=== PATIENT | female | born 1940 | race Caucasian/White ===

== ENCOUNTER → 2016-06-26 | Outpatient (CLI) | payer MEDICARE, OTHER ==
[~2016-06-26] MED LIST: DOCU-94 PO; EZET10TA2 PO; HYDR12.527 PO; LEVO112T32 PO; LIS20T GT; LISI-33 PO; METO50TA7 PO; SERT-135 PO; SIMV-8 PO
[2016-06-26 12:13] LABS: Urine Bilirubin Negative (Negative); Urine Blood Negative /uL (Negative); Urine Color Yellow (Yellow); Urine Glucose Normal (Normal); Urine Ketone Negative (Negative); Urine Nitrite Negative (Negative); Urine Urobilinogen Normal (Negative); Urine pH 5.5 (5.0-8.0)
== END | disposition home or self-care (01) ==
LOC: LAB 08:35
PROVIDERS: ATTEND Internal Medicine Cardiovascular Disease
DX: E03.9 Hypothyroidism, unspecified (principal); N39.0 Urinary tract infection, site not specified
CPT/HCPCS: 36415; 81003; 84436; 84443; 87086

== ENCOUNTER → 2016-09-11 | Outpatient (CLI) | payer MEDICARE, OTHER ==
[~2016-09-11] VITALS: Ht 154.9 cm; Wt 78.5 kg
[~2016-09-11] MED LIST changes: +ADENOSINE 66 MG in GIVE UN-DILUTED 0 ML IV ONE; +ADENOSINE 90 MG/30 ML INJ IV ONE
== END | disposition home or self-care (01) ==
LOC: Rad HDHVI 10:01
PROVIDERS: ATTEND Internal Medicine Cardiovascular Disease
DX: I10 Essential (primary) hypertension (principal); I49.5 Sick sinus syndrome; E78.5 Hyperlipidemia, unspecified; E11.65 Type 2 diabetes mellitus with hyperglycemia; E78.00 Pure hypercholesterolemia, unspecified; Z95.0 Presence of cardiac pacemaker; Z82.49 Family history of ischemic heart disease and other diseases of the circulatory system
CPT/HCPCS: 78452; 93005; 96374; 96375; A9500; J0153

== ENCOUNTER → 2016-09-17 | Outpatient (CLI) | payer MEDICARE, OTHER ==
[~2016-09-17] MED LIST changes: -ADENOSINE 66 MG in GIVE UN-DILUTED 0 ML IV ONE; -ADENOSINE 90 MG/30 ML INJ IV ONE
== END | disposition home or self-care (01) ==
LOC: Rad HDHVI 13:14
PROVIDERS: ATTEND Internal Medicine Cardiovascular Disease
DX: I10 Essential (primary) hypertension (principal); E11.9 Type 2 diabetes mellitus without complications
CPT/HCPCS: 93880

== ENCOUNTER → 2017-02-25 | Outpatient (CLI) | payer MEDICARE, OTHER ==
[2017-02-25 12:58] LABS: Basophils # (auto) 0 uL; Basophils % (auto) 0.3 % (0.0-2.0); Eosinophils # (auto) 0.2 uL; Hematocrit 38.4 % (36.0-46.0); Hemoglobin 13.1 g/dL (12.2-16.2); Lymphocytes # (auto) 0.8 uL; Lymphocytes % (auto) 7.9 % (10.0-50.0); Mean Corpuscular Hemoglobin 33.3 pg (28.0-32.0); Mean Corpuscular Volume 98.2 fL (80.0-100.0); Mean Platelet Volume 8.3 fL (6.9-10.8); Monocytes # (auto) 0.8 uL; Monocytes % (auto) 7.9 % (0.0-12.0); Neutrophils % (auto) 81.9 % (37.0-80.0); Nucleated Red Blood Cells % 0.1 %; Platelet Count (auto) 215 10^3/uL (140-450); Red Cell Distribution Width 13.8 % (11.8-14.3); White Blood Cell 9.8 10^3/uL (4.4-10.8)
[2017-02-25 13:01] LABS: Urine Bilirubin Negative (Negative); Urine Blood Negative /uL (Negative); Urine Color Yellow (Yellow); Urine Glucose Normal (Normal); Urine Ketone Negative (Negative); Urine Nitrite Negative (Negative); Urine pH 5.5 (5.0-8.0)
[2017-02-25 13:26] LABS: BUN/Creatinine Ratio 27.1; Bilirubin, Direct 0.2 mg/dL (0-0.2); Bilirubin, Total 0.8 mg/dL (0.2-1.0); Calcium 10.7 mg/dL (8.5-10.1); Potassium 3.3 mmol/L (3.5-5.1)
== END | disposition home or self-care (01) ==
LOC: LAB 08:31
PROVIDERS: ATTEND Internal Medicine Cardiovascular Disease
DX: I11.0 Hypertensive heart disease with heart failure (principal); I50.9 Heart failure, unspecified; E11.9 Type 2 diabetes mellitus without complications; E78.00 Pure hypercholesterolemia, unspecified; K74.1 Hepatic sclerosis; E03.9 Hypothyroidism, unspecified; D64.9 Anemia, unspecified; E55.9 Vitamin D deficiency, unspecified; N39.0 Urinary tract infection, site not specified
CPT/HCPCS: 36415; 80048; 80061; 80076; 81003; 82306; 83036; 84443; 85025

== ENCOUNTER → 2017-03-07 | Outpatient (CLI) | payer MEDICARE, OTHER ==
[2017-03-07 15:20] LABS: Basophils # (auto) 0 uL; Basophils % (auto) 0.2 % (0.0-2.0); Eosinophils # (auto) 0.1 uL; Eosinophils % (auto) 0.5 % (0.0-7.0); Hematocrit 35.2 % (36.0-46.0); Hemoglobin 11.8 g/dL (12.2-16.2); Lymphocytes # (auto) 1.1 uL; Lymphocytes % (auto) 10.4 % (10.0-50.0); Mean Corpuscular Hemoglobin 32.9 pg (28.0-32.0); Mean Corpuscular Hgb Conc. 33.4 g/dL (32.0-36.0); Mean Corpuscular Volume 98.4 fL (80.0-100.0); Mean Platelet Volume 7.8 fL (6.9-10.8); Monocytes # (auto) 0.6 uL; Monocytes % (auto) 5.9 % (0.0-12.0); Neutrophils # (auto) 8.8 uL; Platelet Count (auto) 229 10^3/uL (140-450); Red Cell Distribution Width 13.9 % (11.8-14.3); White Blood Cell 10.6 10^3/uL (4.4-10.8)
== END | disposition home or self-care (01) ==
LOC: LAB 08:08
PROVIDERS: ATTEND Internal Medicine Cardiovascular Disease
DX: M10.9 Gout, unspecified (principal); D64.9 Anemia, unspecified; R70.0 Elevated erythrocyte sedimentation rate
CPT/HCPCS: 36415; 84550; 85025; 85652

== ENCOUNTER → 2017-05-19 | Outpatient (CLI) | payer MEDICARE, OTHER ==
[~2017-05-19] MED LIST changes: -EZET10TA2 PO; +EZET10TA6 PO
[2017-05-19 17:07] LABS: Urine Blood Negative /uL (Negative); Urine Specific Gravity 1.019 (1.001-1.035)
== END | disposition home or self-care (01) ==
LOC: CHF HDHVI 15:30
PROVIDERS: ATTEND Internal Medicine Cardiovascular Disease
DX: N39.0 Urinary tract infection, site not specified (principal)
CPT/HCPCS: 81003; 87086; 87088; 87186

== ENCOUNTER → 2017-06-02 | Outpatient (CLI) | payer MEDICARE, OTHER ==
[2017-06-02 12:49] LABS: Urine Blood Negative /uL (Negative); Urine Specific Gravity 1.024 (1.001-1.035)
== END | disposition home or self-care (01) ==
LOC: LAB 09:39
PROVIDERS: ATTEND Internal Medicine Cardiovascular Disease
DX: N39.0 Urinary tract infection, site not specified (principal)
CPT/HCPCS: 81003; 87086

== ENCOUNTER → 2017-09-05 | Outpatient (CLI) | payer MEDICARE, OTHER ==
[2017-09-05 12:04] LABS: Basophils # (auto) 0 uL; Basophils % (auto) 0.3 % (0.0-2.0); Eosinophils # (auto) 0.2 uL; Eosinophils % (auto) 3.7 % (0.0-7.0); Hematocrit 37.8 % (36.0-46.0); Hemoglobin 12.7 g/dL (12.2-16.2); Lymphocytes % (auto) 15.7 % (10.0-50.0); Mean Corpuscular Hemoglobin 32.6 pg (28.0-32.0); Mean Corpuscular Hgb Conc. 33.7 g/dL (32.0-36.0); Mean Corpuscular Volume 96.8 fL (80.0-100.0); Monocytes # (auto) 0.6 uL; Neutrophils # (auto) 4.6 uL; Neutrophils % (auto) 71.3 % (37.0-80.0); Nucleated Red Blood Cells % 0.1 %; Platelet Count (auto) 169 10^3/uL (140-450); Urine Blood Negative /uL (Negative); Urine Specific Gravity 1.016 (1.001-1.035); White Blood Cell 6.5 10^3/uL (4.4-10.8)
[2017-09-05 12:22] LABS: Potassium 3.5 mmol/L (3.5-5.1)
[2017-09-05 12:29] LABS: Bilirubin, Total 0.7 mg/dL (0.2-1.0); Calcium 9.8 mg/dL (8.5-10.1); Total Protein 7.4 g/dL (6.4-8.2)
[2017-09-05 12:43] LABS: Free T4 (Free Thyroxine) 0.89 ng/dL (0.89-1.76)
== END | disposition home or self-care (01) ==
LOC: LAB 08:37
PROVIDERS: ATTEND Internal Medicine Cardiovascular Disease
DX: Z00.01 Encounter for general adult medical examination with abnormal findings (principal); E03.9 Hypothyroidism, unspecified; E11.9 Type 2 diabetes mellitus without complications; E55.9 Vitamin D deficiency, unspecified; D51.9 Vitamin B12 deficiency anemia, unspecified; N39.0 Urinary tract infection, site not specified
CPT/HCPCS: 36415; 80053; 80061; 81003; 82306; 82607; 83036; 84439; 84443; 85025

== ENCOUNTER → 2018-03-05 | Outpatient (CLI) | payer MEDICARE, OTHER ==
[~2018-03-05] VITALS: Ht 154.9 cm; Wt 77.1 kg
[~2018-03-05] MED LIST changes: +ADENOSINE 90 MG/30 ML INJ IV ONE; +MET5XLT PO; -METO50TA7 PO
[2018-03-05 16:14] LABS: Urine Blood Negative /uL (Negative); Urine Specific Gravity 1.022 (1.001-1.035)
[2018-03-05 16:20] LABS: Albumin 4.1 g/dL (3.4-5.0); Calcium 10.5 mg/dL (8.5-10.1); Potassium 3.1 mmol/L (3.5-5.1)
[2018-03-05 16:25] LABS: BUN/Creatinine Ratio 30.9; Bilirubin, Total 0.5 mg/dL (0.2-1.0); Total Protein 7.7 g/dL (6.4-8.2)
[2018-03-05 16:29] LABS: Free T4 (Free Thyroxine) 1.04 ng/dL (0.89-1.76)
[2018-03-05 16:41] LABS: Basophils # (auto) 0 uL; Basophils % (auto) 0.3 % (0.0-2.0); Eosinophils # (auto) 0.4 uL; Eosinophils % (auto) 4.3 % (0.0-7.0); Hematocrit 38.3 % (36.0-46.0); Hemoglobin 12.9 g/dL (12.2-16.2); Lymphocytes # (auto) 1.5 uL; Lymphocytes % (auto) 14.8 % (10.0-50.0); Mean Corpuscular Hemoglobin 32.5 pg (28.0-32.0); Mean Corpuscular Hgb Conc. 33.6 g/dL (32.0-36.0); Mean Corpuscular Volume 96.7 fL (80.0-100.0); Monocytes # (auto) 1.1 uL; Monocytes % (auto) 10.5 % (0.0-12.0); Neutrophils # (auto) 7.2 uL; Neutrophils % (auto) 70.1 % (37.0-80.0); Nucleated Red Blood Cells % 0.1 %; Platelet Count (auto) 223 10^3/uL (140-450); Red Blood Cells 3.96 10^6/uL (4.0-5.20); Red Cell Distribution Width 13.9 % (11.8-14.3); White Blood Cell 10.2 10^3/uL (4.4-10.8)
== END | disposition home or self-care (01) ==
LOC: Rad HDHVI 13:05
PROVIDERS: ATTEND Internal Medicine Cardiovascular Disease
DX: E11.9 Type 2 diabetes mellitus without complications (principal); E78.5 Hyperlipidemia, unspecified; D64.9 Anemia, unspecified; E03.9 Hypothyroidism, unspecified; E55.9 Vitamin D deficiency, unspecified; D51.9 Vitamin B12 deficiency anemia, unspecified; N39.0 Urinary tract infection, site not specified; I10 Essential (primary) hypertension; I49.5 Sick sinus syndrome; J01.90 Acute sinusitis, unspecified
CPT/HCPCS: 36415; 80053; 80061; 81003; 82306; 82607; 83036; 84439; 84443; 85025; 87086

== ENCOUNTER → 2018-03-06 | Outpatient (CLI) | payer MEDICARE, OTHER ==
[~2018-03-06] VITALS: Ht 154.9 cm; Wt 77.1 kg
[~2018-03-06] MED LIST changes: +ADENOSINE 65 MG in GIVE UN-DILUTED 0 ML IV ONE; -ADENOSINE 90 MG/30 ML INJ IV ONE
[2018-03-06 08:40] VITALS: BP 134/57
[2018-03-06 09:15] VITALS: BP 148/63
== END | disposition home or self-care (01) ==
LOC: Rad HDHVI 08:20
PROVIDERS: ATTEND Internal Medicine Cardiovascular Disease
DX: Z01.818 Encounter for other preprocedural examination (principal); I51.7 Cardiomegaly; I70.0 Atherosclerosis of aorta
CPT/HCPCS: 71046; 93005; G0463; J0153

== ENCOUNTER → 2018-06-04 | Outpatient (CLI) | payer MEDICARE, OTHER ==
[~2018-06-04] MED LIST changes: -ADENOSINE 65 MG in GIVE UN-DILUTED 0 ML IV ONE
== END | disposition home or self-care (01) ==
LOC: LAB 09:04
PROVIDERS: ATTEND Internal Medicine Cardiovascular Disease
DX: E03.9 Hypothyroidism, unspecified (principal)
CPT/HCPCS: 36415; 84439; 84443

== ENCOUNTER → 2018-09-14 | Outpatient (CLI) | payer MEDICARE, OTHER ==
[~2018-09-14] MED LIST changes: +EZET10TA22 PO; -EZET10TA6 PO; -HYDR12.527 PO; +HYDR12.55 PO; -MET5XLT PO; +METO-6 PO; -SERT-135 PO; +SERT100T PO
[2018-09-14 16:18] LABS: BUN/Creatinine Ratio 17.9; Calcium 10.2 mg/dL (8.5-10.1); Potassium 3.3 mmol/L (3.5-5.1)
== END | disposition home or self-care (01) ==
LOC: LAB 12:01
PROVIDERS: ATTEND Internal Medicine Cardiovascular Disease
DX: I10 Essential (primary) hypertension (principal)
CPT/HCPCS: 36415; 80048

== ENCOUNTER → 2018-11-24 | Outpatient (CLI) | payer MEDICARE, OTHER ==
[2018-11-24 12:26] LABS: Potassium 3.9 mmol/L (3.5-5.1)
[2018-11-24 12:32] LABS: BUN/Creatinine Ratio 24.2; Calcium 9.8 mg/dL (8.5-10.1); Magnesium 2.4 mg/dL (1.6-2.6)
== END | disposition home or self-care (01) ==
LOC: LAB 10:25
PROVIDERS: ATTEND Internal Medicine Cardiovascular Disease
DX: E83.40 Disorders of magnesium metabolism, unspecified (principal); R79.89 Other specified abnormal findings of blood chemistry
CPT/HCPCS: 36415; 80048; 83735

== ENCOUNTER → 2019-01-08 | Outpatient (CLI) | payer MEDICARE, OTHER ==
[2019-01-08 15:58] LABS: Urine Blood 2+ /uL (Negative); Urine Specific Gravity 1.023 (1.001-1.035)
== END | disposition home or self-care (01) ==
LOC: LAB 11:48
PROVIDERS: ATTEND Internal Medicine Cardiovascular Disease
DX: N39.0 Urinary tract infection, site not specified (principal)
CPT/HCPCS: 81003; 87086

== ENCOUNTER → 2019-01-15 | Outpatient (CLI) | payer MEDICARE, OTHER ==
[2019-01-15 12:05] LABS: Urine Blood Negative /uL (Negative); Urine Specific Gravity 1.022 (1.001-1.035)
[2019-01-15 12:07] LABS: BUN/Creatinine Ratio 18.7; Calcium 9.8 mg/dL (8.5-10.1); Potassium 4.1 mmol/L (3.5-5.1)
== END | disposition home or self-care (01) ==
LOC: LAB 09:30
PROVIDERS: ATTEND Internal Medicine
DX: N39.0 Urinary tract infection, site not specified (principal); R53.83 Other fatigue; I10 Essential (primary) hypertension
CPT/HCPCS: 36415; 80048; 81003; 87086

== ENCOUNTER → 2019-02-15 | Outpatient (CLI) | payer MEDICARE, OTHER ==
[2019-02-15 12:16] LABS: BUN/Creatinine Ratio 20.2; Calcium 9.4 mg/dL (8.5-10.1); Potassium 3.8 mmol/L (3.5-5.1)
== END | disposition home or self-care (01) ==
LOC: LAB 09:31
PROVIDERS: ATTEND Internal Medicine Cardiovascular Disease
DX: I11.0 Hypertensive heart disease with heart failure (principal); I50.9 Heart failure, unspecified; E78.5 Hyperlipidemia, unspecified; E03.9 Hypothyroidism, unspecified; F32.9 Major depressive disorder, single episode, unspecified; Z88.5 Allergy status to narcotic agent; Z88.1 Allergy status to other antibiotic agents; Z91.02 Food additives allergy status
CPT/HCPCS: 36415; 80048

== ENCOUNTER → 2019-03-08 | Outpatient (CLI) | payer MEDICARE, OTHER ==
[2019-03-08 11:58] LABS: Potassium 4.2 mmol/L (3.5-5.1)
[2019-03-08 12:07] LABS: BUN/Creatinine Ratio 33.1; Calcium 9.9 mg/dL (8.5-10.1)
== END | disposition home or self-care (01) ==
LOC: LAB 09:17
PROVIDERS: ATTEND Internal Medicine Cardiovascular Disease
DX: I10 Essential (primary) hypertension (principal); Z79.899 Other long term (current) drug therapy
CPT/HCPCS: 36415; 80048

== ENCOUNTER → 2019-04-12 | Outpatient (CLI) | payer MEDICARE, OTHER | END | disposition home or self-care (01) | LOC: LAB 12:58 | PROVIDERS: ATTEND Internal Medicine Cardiovascular Disease | DX: E87.6 Hypokalemia (principal) | CPT/HCPCS: 36415; 84132 ==

== ENCOUNTER → 2019-04-30 | Outpatient (CLI) | payer MEDICARE, OTHER | END | disposition home or self-care (01) | LOC: Rad HDHVI 12:47 | PROVIDERS: ATTEND Internal Medicine Cardiovascular Disease | DX: I34.0 Nonrheumatic mitral (valve) insufficiency (principal); I10 Essential (primary) hypertension; J44.9 Chronic obstructive pulmonary disease, unspecified; R07.9 Chest pain, unspecified | CPT/HCPCS: 93306 ==

== ENCOUNTER → 2019-05-12 | Outpatient (CLI) | payer MEDICARE, OTHER ==
[~2019-05-12] VITALS: Ht 154.9 cm; Wt 74.4 kg
[~2019-05-12] MED LIST changes: +ADENOSINE 62 MG in GIVE UN-DILUTED 0 ML IV ONE; +ADENOSINE 90 MG/30 ML INJ IV ONE
[2019-05-12 12:28] LABS: Basophils # (auto) 0 uL; Basophils % (auto) 0.4 % (0.0-2.0); Eosinophils # (auto) 0.3 uL; Eosinophils % (auto) 4.3 % (0.0-7.0); Hematocrit 35.5 % (36.0-46.0); Lymphocytes # (auto) 0.7 uL; Mean Corpuscular Hemoglobin 32.7 pg (28.0-32.0); Mean Corpuscular Hgb Conc. 33.8 g/dL (32.0-36.0); Mean Corpuscular Volume 96.6 fL (80.0-100.0); Monocytes # (auto) 0.8 uL; Monocytes % (auto) 9.6 % (0.0-12.0); Neutrophils # (auto) 6.1 uL; Neutrophils % (auto) 76.7 % (37.0-80.0); Nucleated Red Blood Cells % 0.1 %; Platelet Count (auto) 171 10^3/uL (140-450); Red Blood Cells 3.68 10^6/uL (4.0-5.20); Red Cell Distribution Width 15.3 % (11.8-14.3)
[2019-05-12 12:37] LABS: Urine Blood Negative /uL (Negative); Urine Specific Gravity 1.016 (1.001-1.035)
[2019-05-12 12:53] LABS: Potassium 4.5 mmol/L (3.5-5.1)
[2019-05-12 13:00] LABS: Albumin 3.9 g/dL (3.4-5.0); BUN/Creatinine Ratio 26.8; Bilirubin, Total 0.5 mg/dL (0.2-1.0); Calcium 10.6 mg/dL (8.5-10.1); Total Protein 7.3 g/dL (6.4-8.2)
[2019-05-12 13:10] LABS: Free T4 (Free Thyroxine) 1.14 ng/dL (0.89-1.76)
== END | disposition home or self-care (01) ==
LOC: Rad HDHVI 07:55
PROVIDERS: ATTEND Internal Medicine Cardiovascular Disease
DX: E11.9 Type 2 diabetes mellitus without complications (principal); I10 Essential (primary) hypertension; E03.9 Hypothyroidism, unspecified; K90.9 Intestinal malabsorption, unspecified; N39.0 Urinary tract infection, site not specified; D51.9 Vitamin B12 deficiency anemia, unspecified; E78.00 Pure hypercholesterolemia, unspecified; Z82.49 Family history of ischemic heart disease and other diseases of the circulatory system; Z95.0 Presence of cardiac pacemaker; Z79.899 Other long term (current) drug therapy
CPT/HCPCS: 36415; 78452; 80053; 80061; 81003; 82306; 82607; 83036; 84439; 84443; 85025; 87086; 93005; 96374; 96375; A9500; J0153

== ENCOUNTER → 2020-04-19 | Outpatient (CLI) | payer MEDICARE, OTHER ==
[~2020-04-19] MED LIST changes: -ADENOSINE 62 MG in GIVE UN-DILUTED 0 ML IV ONE; -ADENOSINE 90 MG/30 ML INJ IV ONE
== END | disposition home or self-care (01) ==
LOC: Rad HDHVI 13:00
PROVIDERS: ATTEND Internal Medicine Cardiovascular Disease
DX: J32.9 Chronic sinusitis, unspecified (principal)
CPT/HCPCS: 70220

== ENCOUNTER → 2020-04-20 | Outpatient (CLI) | payer MEDICARE, OTHER | END | disposition home or self-care (01) | LOC: Rad HDHVI 09:47 | PROVIDERS: ATTEND Internal Medicine Cardiovascular Disease | DX: I08.3 Combined rheumatic disorders of mitral, aortic and tricuspid valves (principal); R00.2 Palpitations; R07.89 Other chest pain | CPT/HCPCS: 93306 ==

== ENCOUNTER → 2020-04-21 | Outpatient (CLI) | payer MEDICARE, OTHER ==
[2020-04-21 11:34] LABS: Basophils # (auto) 0 10 ^3/uL (0-0.2); Basophils % (auto) 0.2 % (0.0-2.0); Eosinophils # (auto) 0.1 10 ^3/uL (0-0.8); Eosinophils % (auto) 1.5 % (0.0-7.0); Hematocrit 34.9 % (36.0-46.0); Hemoglobin 11.7 g/dL (12.2-16.2); Lymphocytes # (auto) 1.2 10 ^3/uL (0.4-5.4); Lymphocytes % (auto) 14.5 % (10.0-50.0); Mean Corpuscular Hemoglobin 32.2 pg (28.0-32.0); Mean Corpuscular Hgb Conc. 33.4 g/dL (32.0-36.0); Mean Corpuscular Volume 96.1 fL (80.0-100.0); Monocytes # (auto) 0.7 10 ^3/uL (0-1.3); Monocytes % (auto) 8.8 % (0.0-12.0); Neutrophils # (auto) 6.2 10 ^3/uL (1.6-8.6); Nucleated Red Blood Cells % 0.1 %; Platelet Count (auto) 178 10^3/uL (140-450); Red Blood Cells 3.63 10^6/uL (4.0-5.20); Red Cell Distribution Width 14.8 % (11.8-14.3); White Blood Cell 8.3 10^3/uL (4.4-10.8)
[2020-04-21 11:38] LABS: Urine Blood Negative /uL (Negative); Urine Specific Gravity 1.019 (1.001-1.035)
[2020-04-21 11:44] LABS: Potassium 3.8 mmol/L (3.5-5.1)
[2020-04-21 11:54] LABS: Albumin 3.8 g/dL (3.4-5.0); BUN/Creatinine Ratio 22.7; Bilirubin, Total 0.4 mg/dL (0.2-1.0); Calcium 10.4 mg/dL (8.5-10.1); Free T4 (Free Thyroxine) 1.05 ng/dL (0.89-1.76); Total Protein 7.5 g/dL (6.4-8.2)
== END | disposition home or self-care (01) ==
LOC: LAB 08:24
PROVIDERS: ATTEND Internal Medicine Cardiovascular Disease
DX: D51.3 Other dietary vitamin B12 deficiency anemia (principal); I10 Essential (primary) hypertension; E11.9 Type 2 diabetes mellitus without complications; E55.9 Vitamin D deficiency, unspecified; R00.2 Palpitations; R53.1 Weakness; R30.0 Dysuria
CPT/HCPCS: 36415; 80053; 80061; 81003; 82306; 82607; 83036; 84439; 84443; 85025; 87086

== ENCOUNTER → 2020-05-09 | Outpatient (CLI) | payer MEDICARE, OTHER ==
[~2020-05-09] VITALS: Ht 154.9 cm; Wt 73.5 kg
[~2020-05-09] MED LIST changes: +ADENOSINE 62 MG in GIVE UN-DILUTED 0 ML IV ONE; +ADENOSINE 90 MG/30 ML INJ IV ONE
== END | disposition home or self-care (01) ==
LOC: Rad HDHVI 08:10
PROVIDERS: ATTEND Internal Medicine Cardiovascular Disease
DX: I25.10 Atherosclerotic heart disease of native coronary artery without angina pectoris (principal); I10 Essential (primary) hypertension; E78.00 Pure hypercholesterolemia, unspecified; E11.9 Type 2 diabetes mellitus without complications; Z95.0 Presence of cardiac pacemaker; Z82.49 Family history of ischemic heart disease and other diseases of the circulatory system
CPT/HCPCS: 78452; 93005; 96374; 96375; A9500; J0153

== ENCOUNTER → 2021-04-17 | Outpatient (CLI) | payer MEDICARE, OTHER ==
[~2021-04-17] MED LIST changes: -ADENOSINE 62 MG in GIVE UN-DILUTED 0 ML IV ONE; -ADENOSINE 90 MG/30 ML INJ IV ONE
[2021-04-17 11:31] LABS: Urine Blood Negative /uL (Negative); Urine Specific Gravity 1.017 (1.001-1.035)
[2021-04-17 11:34] LABS: Basophils # (auto) 0 10 ^3/uL (0-0.2); Basophils % (auto) 0.3 % (0.0-2.0); Eosinophils # (auto) 0.3 10 ^3/uL (0-0.8); Eosinophils % (auto) 4.2 % (0.0-7.0); Hematocrit 35.7 % (36.0-46.0); Hemoglobin 11.9 g/dL (12.2-16.2); Lymphocytes # (auto) 0.7 10 ^3/uL (0.4-5.4); Lymphocytes % (auto) 10.5 % (10.0-50.0); Mean Corpuscular Hgb Conc. 33.4 g/dL (32.0-36.0); Mean Corpuscular Volume 95.9 fL (80.0-100.0); Monocytes # (auto) 0.5 10 ^3/uL (0-1.3); Monocytes % (auto) 8.7 % (0.0-12.0); Neutrophils # (auto) 4.8 10 ^3/uL (1.6-8.6); Neutrophils % (auto) 76.3 % (37.0-80.0); Red Blood Cells 3.72 10^6/uL (4.0-5.20); White Blood Cell 6.3 10^3/uL (4.4-10.8)
[2021-04-17 11:45] LABS: Albumin 3.9 g/dL (3.4-5.0); Calcium 10.7 mg/dL (8.5-10.1); Potassium 4.7 mmol/L (3.5-5.1)
[2021-04-17 11:57] LABS: Free T4 (Free Thyroxine) 0.9 ng/dL (0.89-1.76)
[2021-04-17 12:05] LABS: BUN/Creatinine Ratio 28.1; Bilirubin, Total 0.4 mg/dL (0.2-1.0); Total Protein 7.3 g/dL (6.4-8.2)
== END | disposition home or self-care (01) ==
LOC: LAB 08:01
PROVIDERS: ATTEND Internal Medicine Cardiovascular Disease
DX: E11.9 Type 2 diabetes mellitus without complications (principal); D51.3 Other dietary vitamin B12 deficiency anemia; D64.9 Anemia, unspecified; E55.9 Vitamin D deficiency, unspecified; I10 Essential (primary) hypertension; R00.2 Palpitations; R53.1 Weakness; R30.0 Dysuria
CPT/HCPCS: 36415; 80053; 80061; 81003; 82306; 82607; 83036; 84439; 84443; 85025

== ENCOUNTER → 2021-04-30 | Outpatient (CLI) | payer MEDICARE, OTHER | END | disposition home or self-care (01) | LOC: Rad HDHVI 13:53 | PROVIDERS: ATTEND Internal Medicine Cardiovascular Disease | DX: R00.2 Palpitations (principal); R06.02 Shortness of breath | CPT/HCPCS: 93306 ==

== ENCOUNTER → 2021-05-01 | Outpatient (CLI) | payer MEDICARE, OTHER | END | disposition home or self-care (01) | LOC: LAB 12:32 | PROVIDERS: ATTEND Internal Medicine Cardiovascular Disease | DX: E21.4 Other specified disorders of parathyroid gland (principal) | CPT/HCPCS: 83970 ==

== ENCOUNTER → 2021-05-21 | Outpatient (CLI) | payer MEDICARE, OTHER ==
[~2021-05-21] VITALS: Ht 152.4 cm; Wt 72.6 kg
[~2021-05-21] MED LIST changes: +ADENOSINE 61 MG in GIVE UN-DILUTED 0 ML IV ONE; +ADENOSINE 90 MG/30 ML INJ IV ONE
== END | disposition home or self-care (01) ==
LOC: Rad HDHVI 08:27
PROVIDERS: ATTEND Internal Medicine Cardiovascular Disease
DX: I11.0 Hypertensive heart disease with heart failure (principal); I50.43 Acute on chronic combined systolic (congestive) and diastolic (congestive) heart failure; R00.2 Palpitations; R06.02 Shortness of breath; J44.9 Chronic obstructive pulmonary disease, unspecified; E78.5 Hyperlipidemia, unspecified; E11.9 Type 2 diabetes mellitus without complications; Z82.49 Family history of ischemic heart disease and other diseases of the circulatory system; Z95.0 Presence of cardiac pacemaker
CPT/HCPCS: 78452; 93005; 96374; 96375; A9500; J0153

== ENCOUNTER → 2021-09-24 | Outpatient (CLI) | payer MEDICARE, OTHER ==
[~2021-09-24] MED LIST changes: -ADENOSINE 61 MG in GIVE UN-DILUTED 0 ML IV ONE; -ADENOSINE 90 MG/30 ML INJ IV ONE
== END | disposition home or self-care (01) ==
LOC: Rad HDHVI 13:02
PROVIDERS: ATTEND Internal Medicine Cardiovascular Disease
DX: J32.9 Chronic sinusitis, unspecified (principal); R51.9 Headache, unspecified
CPT/HCPCS: 70486

== ENCOUNTER → 2022-02-04 | Outpatient (CLI) | payer MEDICARE, OTHER ==
[2022-02-04 11:46] LABS: Urine Blood Negative /uL (Negative); Urine Specific Gravity 1.015 (1.001-1.035)
[2022-02-04 11:49] LABS: Basophils # (auto) 0 10 ^3/uL (0-0.2); Basophils % (auto) 0.6 % (0.0-2.0); Eosinophils # (auto) 0.3 10 ^3/uL (0-0.8); Eosinophils % (auto) 4.8 % (0.0-7.0); Hematocrit 35.4 % (36.0-46.0); Hemoglobin 11.8 g/dL (12.2-16.2); Lymphocytes # (auto) 1.1 10 ^3/uL (0.4-5.4); Lymphocytes % (auto) 16.8 % (10.0-50.0); Mean Corpuscular Hemoglobin 32.1 pg (28.0-32.0); Mean Corpuscular Hgb Conc. 33.3 g/dL (32.0-36.0); Mean Corpuscular Volume 96.5 fL (80.0-100.0); Monocytes # (auto) 0.6 10 ^3/uL (0-1.3); Monocytes % (auto) 9.9 % (0.0-12.0); Neutrophils # (auto) 4.3 10 ^3/uL (1.6-8.6); Neutrophils % (auto) 67.9 % (37.0-80.0); Red Blood Cells 3.67 10^6/uL (4.0-5.20); Red Cell Distribution Width 13.4 % (11.8-14.3); White Blood Cell 6.4 10^3/uL (4.4-10.8)
[2022-02-04 11:52] LABS: Albumin 3.8 g/dL (3.4-5.0); Calcium 10.1 mg/dL (8.5-10.1); Potassium 4.7 mmol/L (3.5-5.1)
[2022-02-04 11:58] LABS: BUN/Creatinine Ratio 29.4; Bilirubin, Total 0.4 mg/dL (0.2-1.0); Total Protein 7.1 g/dL (6.4-8.2)
[2022-02-04 12:08] LABS: Free T4 (Free Thyroxine) 0.99 ng/dL (0.89-1.76)
== END | disposition home or self-care (01) ==
LOC: LAB 08:36
PROVIDERS: ATTEND Internal Medicine Cardiovascular Disease
DX: E78.5 Hyperlipidemia, unspecified (principal); E55.9 Vitamin D deficiency, unspecified; N39.0 Urinary tract infection, site not specified
CPT/HCPCS: 36415; 80053; 80061; 81003; 82306; 82607; 83036; 84439; 84443; 85025; 87086

== ENCOUNTER → 2022-05-02 | Outpatient (CLI) | payer MEDICARE, OTHER | END | disposition home or self-care (01) | LOC: Rad HDHVI 08:03 | PROVIDERS: ATTEND Internal Medicine Cardiovascular Disease | DX: I34.0 Nonrheumatic mitral (valve) insufficiency (principal); I10 Essential (primary) hypertension; R00.2 Palpitations | CPT/HCPCS: 93306 ==

== ENCOUNTER → 2022-05-03 | Outpatient (CLI) | payer MEDICARE, OTHER ==
[~2022-05-03] VITALS: Ht 154.9 cm; Wt 70.8 kg
[~2022-05-03] MED LIST changes: +ADENOSINE 59 MG in GIVE UN-DILUTED 0 ML IV ONE; +ADENOSINE 90 MG/30 ML INJ IV ONE
== END | disposition home or self-care (01) ==
LOC: Rad HDHVI 08:05
PROVIDERS: ATTEND Internal Medicine Cardiovascular Disease
DX: R06.02 Shortness of breath (principal); R07.9 Chest pain, unspecified; R00.2 Palpitations; I10 Essential (primary) hypertension; E78.5 Hyperlipidemia, unspecified; E11.9 Type 2 diabetes mellitus without complications; Z82.49 Family history of ischemic heart disease and other diseases of the circulatory system; Z95.0 Presence of cardiac pacemaker
CPT/HCPCS: 78452; 93005; 96374; 96375; A9500; J0153

== ENCOUNTER → 2022-06-03 | Outpatient (CLI) | payer MEDICARE, OTHER ==
[~2022-06-03] MED LIST changes: -ADENOSINE 59 MG in GIVE UN-DILUTED 0 ML IV ONE; -ADENOSINE 90 MG/30 ML INJ IV ONE
== END | disposition home or self-care (01) ==
LOC: Rad HDHVI 08:17
PROVIDERS: ATTEND Internal Medicine Cardiovascular Disease
DX: I65.21 Occlusion and stenosis of right carotid artery (principal); I10 Essential (primary) hypertension
CPT/HCPCS: 93880

== ENCOUNTER → 2022-06-10 | Outpatient (CLI) | payer MEDICARE ==
[2022-06-10 09:41] LABS: Basophils # (auto) 0 10 ^3/uL (0-0.2); Basophils % (auto) 0.4 % (0.0-2.0); Eosinophils # (auto) 0.2 10 ^3/uL (0-0.8); Eosinophils % (auto) 4.1 % (0.0-7.0); Hematocrit 34.1 % (36.0-46.0); Hemoglobin 11.6 g/dL (12.2-16.2); Lymphocytes # (auto) 0.8 10 ^3/uL (0.4-5.4); Lymphocytes % (auto) 13.3 % (10.0-50.0); Mean Corpuscular Hemoglobin 33.3 pg (28.0-32.0); Mean Corpuscular Volume 97.9 fL (80.0-100.0); Monocytes # (auto) 0.6 10 ^3/uL (0-1.3); Monocytes % (auto) 9.9 % (0.0-12.0); Neutrophils # (auto) 4.4 10 ^3/uL (1.6-8.6); Neutrophils % (auto) 72.3 % (37.0-80.0); Red Blood Cells 3.48 10^6/uL (4.0-5.20); Red Cell Distribution Width 13.1 % (11.8-14.3); White Blood Cell 6.1 10^3/uL (4.4-10.8)
[2022-06-10 09:52] LABS: Urine Blood Negative /uL (Negative); Urine Specific Gravity 1.013 (1.001-1.035)
[2022-06-10 11:10] LABS: Free T4 (Free Thyroxine) 1.12 ng/dL (0.89-1.76)
[2022-06-10 11:17] LABS: Albumin 4.1 g/dL (3.4-5.0); BUN/Creatinine Ratio 27.8; Calcium 10.6 mg/dL (8.5-10.1); Potassium 4.8 mmol/L (3.5-5.1); Total Protein 7.2 g/dL (6.4-8.2)
[2022-06-10 11:19] LABS: Bilirubin, Total 0.9 mg/dL (0.2-1.0)
== END | disposition home or self-care (01) ==
LOC: LAB 09:16
PROVIDERS: ATTEND Internal Medicine Cardiovascular Disease
DX: I10 Essential (primary) hypertension (principal); E11.9 Type 2 diabetes mellitus without complications; D64.9 Anemia, unspecified; E55.9 Vitamin D deficiency, unspecified; D51.3 Other dietary vitamin B12 deficiency anemia; R00.1 Bradycardia, unspecified; R53.1 Weakness; R30.0 Dysuria
CPT/HCPCS: 36415; 80053; 80061; 81003; 82306; 82607; 83036; 84439; 84443; 85025

== ENCOUNTER → 2023-01-29 | Outpatient (CLI) | payer MEDICARE ==
[~2023-01-29] MED LIST changes: -SIMV-8 PO; +SIMV20TA20 PO
[2023-01-29 08:20] LABS: Basophils # (auto) 0 10 ^3/uL (0-0.2); Eosinophils # (auto) 0 10 ^3/uL (0-0.8); Hematocrit 33.7 % (36.0-46.0); Hemoglobin 10.9 g/dL (12.2-16.2); Lymphocytes # (auto) 0.6 10 ^3/uL (0.4-5.4); Lymphocytes % (auto) 3.9 % (10.0-50.0); Mean Corpuscular Hemoglobin 31.7 pg (28.0-32.0); Mean Corpuscular Hgb Conc. 32.4 g/dL (32.0-36.0); Mean Corpuscular Volume 97.8 fL (80.0-100.0); Monocytes # (auto) 0.7 10 ^3/uL (0-1.3); Monocytes % (auto) 4.3 % (0.0-12.0); Neutrophils # (auto) 14.7 10 ^3/uL (1.6-8.6); Neutrophils % (auto) 91.8 % (37.0-80.0); Red Blood Cells 3.45 10^6/uL (4.0-5.20); Red Cell Distribution Width 13.8 % (11.8-14.3)
[2023-01-29 08:57] LABS: Alanine Aminotransferase 11 U/L (7-40); Albumin 4.8 g/dL (3.2-4.8); Alkaline Phosphatase 56 U/L (46-116); Anion Gap 9 (5-15); BUN/Creatinine Ratio 33.6 (10.0-20.0); Blood Urea Nitrogen 46 mg/dL (9-23); Calcium 11.2 mg/dL (8.5-10.1); Carbon Dioxide 21 mmol/L (20-30); Chloride 112 mmol/L (98-107); Glucose 110 mg/dL (74-106); LDL Cholesterol 70 mg/dL (< 100); Potassium 4.4 mmol/L (3.5-5.1); Sodium 142 mmol/L (136-145); Triglycerides 136 mg/dL (< 150)
[2023-01-29 08:58] LABS: Aspartate Aminotransferase 14 U/L (13-40); Bilirubin, Direct 0.1 mg/dL (<0.3); Bilirubin, Total 0.3 mg/dL (0.2-1.0); Cholesterol 127 mg/dL (< 200); HDL Cholesterol 35 mg/dL (40-59); Total Protein 7.3 g/dL (5.7-8.2)
== END | disposition home or self-care (01) ==
LOC: LAB 08:04
PROVIDERS: ATTEND Internal Medicine Cardiovascular Disease
DX: D51.3 Other dietary vitamin B12 deficiency anemia (principal); D64.9 Anemia, unspecified; E11.9 Type 2 diabetes mellitus without complications; E55.9 Vitamin D deficiency, unspecified; I10 Essential (primary) hypertension; R00.2 Palpitations; R30.0 Dysuria; R53.1 Weakness
CPT/HCPCS: 36415; 80048; 80061; 80076; 82306; 83036; 84443; 85025; 87086

== ENCOUNTER → 2023-02-25 | Outpatient (CLI) | payer MEDICARE ==
[2023-02-25 16:49] LABS: Urine Bacteria FEW /hpf (None Seen); Urine Blood Negative /uL (Negative); Urine Clarity Clear (Clear); Urine Color Yellow (Yellow); Urine Hyaline Cast MOD /lpf (0 - 2); Urine Protein, UAD Negative (Negative); Urine Specific Gravity 1.016 (1.001-1.035); Urine Urobilinogen Normal (Negative); Urine WBC 5 /hpf (0 - 5)
== END | disposition home or self-care (01) ==
LOC: LAB 16:04
PROVIDERS: ATTEND Internal Medicine Cardiovascular Disease
DX: E11.9 Type 2 diabetes mellitus without complications (principal); I10 Essential (primary) hypertension; D51.9 Vitamin B12 deficiency anemia, unspecified; R00.2 Palpitations; R53.1 Weakness; R30.0 Dysuria; D64.9 Anemia, unspecified; E55.9 Vitamin D deficiency, unspecified
CPT/HCPCS: 81001

== ENCOUNTER 2023-03-14 13:52 | Inpatient (IN) | payer MEDICARE, OTHER ==
[~2023-03-14] VITALS: Ht 154.9 cm; Wt 66.0 kg
[2023-03-14 15:02] LABS: Basophils # (auto) 0 10 ^3/uL (0-0.2); Basophils % (auto) 0.1 % (0.0-2.0); Eosinophils # (auto) 0.2 10 ^3/uL (0-0.8); Eosinophils % (auto) 1.3 % (0.0-7.0); Hematocrit 33.4 % (36.0-46.0); Hemoglobin 10.7 g/dL (12.2-16.2); Lymphocytes # (auto) 1.2 10 ^3/uL (0.4-5.4); Lymphocytes % (auto) 8.5 % (10.0-50.0); Mean Corpuscular Hemoglobin 31.5 pg (28.0-32.0); Mean Corpuscular Volume 98.4 fL (80.0-100.0); Monocytes # (auto) 1.6 10 ^3/uL (0-1.3); Monocytes % (auto) 11.1 % (0.0-12.0); Neutrophils # (auto) 11.1 10 ^3/uL (1.6-8.6); Red Cell Distribution Width 13.9 % (11.8-14.3)
[2023-03-14 15:08] LABS: Alanine Aminotransferase 31 U/L (7-40); Albumin 4.2 g/dL (3.2-4.8); Alkaline Phosphatase 58 U/L (46-116); Anion Gap 10 (5-15); Aspartate Aminotransferase 18 U/L (13-40); BUN/Creatinine Ratio 26.8 (10.0-20.0); Bilirubin, Total 0.4 mg/dL (0.2-1.0); Blood Urea Nitrogen 52 mg/dL (9-23); Calcium 9.8 mg/dL (8.5-10.1); Carbon Dioxide 20 mmol/L (20-30); Chloride 109 mmol/L (98-107); Glucose 102 mg/dL (74-106); Potassium 5.1 mmol/L (3.5-5.1); Sodium 139 mmol/L (136-145); Total Protein 5.9 g/dL (5.7-8.2)
[2023-03-14 15:10] VITALS: PULSE 84; RESP 17; O2SAT 99
[2023-03-14] MEDS ORDERED: SODIUM CHLORIDE 0.9% 500 ML IV ONE (15:15)
[2023-03-14 15:22] LABS: INR 0.99 (0.9-1.15); Partial Thromboplastin Time 23.9 SEC (24.5-34.5); Prothrombin Time 10.4 sec (9.3-11.8)
[2023-03-14 15:56] LABS: COVID19 ANTIGEN SOFIA FIA POSITIVE (NEGATIVE)
[2023-03-14] MEDS ORDERED: methylPREDNISolone SOD SUCC 125 MG/2 ML VL IV ONE (16:30)
[2023-03-14] MEDS ORDERED: ONDANSETRON HCL 4 MG/2 ML VIAL IV PRN (17:00)
[2023-03-14] MEDS ORDERED: NITROGLYCERIN 0.4 MG SL TAB SL PRN (17:00)
[2023-03-14] MEDS ORDERED: DOCUSATE SOD 100 MG CAP PO PRN (17:00)
[2023-03-14] MEDS ORDERED: ACETAMINOPHEN 325 MG TAB PO PRN (17:00)
[2023-03-14] MEDS ORDERED: ALBUTEROL SULF HFA 90MCG INH 200DOSE IN PRN (17:00)
[2023-03-14] MEDS ORDERED: cefTRIAXone 1GM/50ML D5W 50 ML IV ONE (17:00)
[2023-03-14] MEDS ORDERED: HYDROcodone-ACET 5/325MG TAB PO PRN (17:00)
[2023-03-14] MEDS ORDERED: MORPHINE SULFATE INJ 2 MG/ml SYRG IV PRN (17:00)
[2023-03-14] MEDS ORDERED: LEVO150T10 PO (17:15)
[2023-03-14] MEDS ORDERED: METO1TAB9 PO (17:15)
[2023-03-14] MEDS: SODIUM CHLORIDE 0.9% 1,000 ML IV SCH (17:49)
[2023-03-14 18:00] LABS: Thyroid Stimulating Hormone 0.08 uIU/mL (0.358-3.74)
[2023-03-14 19:30] VITALS: PULSE 79; RESP 18; O2SAT 96
[2023-03-14 19:41] LABS: CRP High Sensitivity 5.87 mg/dL (<1.0)
[2023-03-14] MEDS: ATORVASTATIN 20 MG TAB PO SCH (21:03)
[2023-03-14] MEDS: DOCUSATE SOD 100 MG CAP PO SCH (21:04)
[2023-03-14] MEDS: LISINOPRIL 20 MG TAB GT SCH ×2 (21:11→22:54)
[2023-03-14 21:35] LABS: Urine Bacteria FEW /hpf (None Seen); Urine Blood Negative /uL (Negative); Urine Clarity Clear (Clear); Urine Color Yellow (Yellow); Urine Hyaline Cast MANY /lpf (0 - 2); Urine Protein, UAD Negative (Negative); Urine Specific Gravity 1.013 (1.001-1.035); Urine Urobilinogen Normal (Negative); Urine WBC 2 /hpf (0 - 5)
[2023-03-14 23:01] VITALS: BP 102/33; PULSE 74; RESP 17; TEMP 97.9; O2SAT 96
[2023-03-14 23:18] VITALS: BP 102/33; PULSE 74; RESP 17; TEMP 97.9; O2SAT 96
[2023-03-15] VITALS (8 sets, daily range): BP systolic 102–123; BP diastolic 33–46; PULSE 73–114; RESP 16–22; TEMP 97.9–98.9; O2SAT 94–98
[2023-03-15] MEDS ORDERED: FEXO-42 PO (05:37)
[2023-03-15] MEDS ORDERED: PREG50CA PO (05:37)
[2023-03-15] MEDS ORDERED: ASPI325T4 PO (05:37)
[2023-03-15] MEDS ORDERED: POTA-211 PO (05:37)
[2023-03-15] MEDS: LEVOTHYROXINE SODIUM 50 MCG TAB PO SCH (06:27)
[2023-03-15 06:58] LABS: Basophils # (auto) 0 10 ^3/uL (0-0.2); Eosinophils # (auto) 0 10 ^3/uL (0-0.8); Hematocrit 27.7 % (36.0-46.0); Hemoglobin 9.3 g/dL (12.2-16.2); Lymphocytes # (auto) 0.4 10 ^3/uL (0.4-5.4); Lymphocytes % (auto) 5.3 % (10.0-50.0); Mean Corpuscular Hemoglobin 32.9 pg (28.0-32.0); Mean Corpuscular Hgb Conc. 33.8 g/dL (32.0-36.0); Mean Corpuscular Volume 97.3 fL (80.0-100.0); Monocytes # (auto) 0.1 10 ^3/uL (0-1.3); Monocytes % (auto) 1.2 % (0.0-12.0); Neutrophils # (auto) 7.3 10 ^3/uL (1.6-8.6); Neutrophils % (auto) 93.5 % (37.0-80.0); Red Blood Cells 2.85 10^6/uL (4.0-5.20); Red Cell Distribution Width 13.6 % (11.8-14.3); White Blood Cell 7.8 10^3/uL (4.4-10.8)
[2023-03-15 07:18] LABS: Alkaline Phosphatase 48 U/L (46-116)
[2023-03-15 07:19] LABS: Alanine Aminotransferase 25 U/L (7-40); Albumin 3.8 g/dL (3.2-4.8); Anion Gap 12 (5-15); Aspartate Aminotransferase 16 U/L (13-40); BUN/Creatinine Ratio 26.2 (10.0-20.0); Bilirubin, Total 0.3 mg/dL (0.2-1.0); Blood Urea Nitrogen 44 mg/dL (9-23); Calcium 9.6 mg/dL (8.5-10.1); Carbon Dioxide 18 mmol/L (20-30); Chloride 110 mmol/L (98-107); Glucose 163 mg/dL (74-106); Potassium 4.4 mmol/L (3.5-5.1); Sodium 140 mmol/L (136-145); Total Protein 5.8 g/dL (5.7-8.2)
[2023-03-15] MEDS: ASCORBIC ACID 1,000 MG TAB PO SCH (09:36)
[2023-03-15] MEDS: CHOLECALCIFEROL (VITD3) 2,000 UNIT CAP/TAB PO SCH (09:36)
[2023-03-15] MEDS: DexAMETHasone SOD PHOS 10MG/1ML VIAL INJ IV SCH (09:36)
[2023-03-15] MEDS: ENOXAPARIN SOD 30 MG/0.3 ML SYRINGE SC SCH (09:37)
[2023-03-15] MEDS: SERTRALINE HCL 50 MG TAB PO SCH (09:37)
[2023-03-15] MEDS: DOCUSATE SOD 100 MG CAP PO SCH ×2 (09:37→22:25)
[2023-03-15] MEDS: cefTRIAXone 1GM/50ML D5W 50 ML IV SCH (09:38)
[2023-03-15] MEDS: LISINOPRIL 20 MG TAB GT SCH (09:38)
[2023-03-15] MEDS: METOPROLOL SUCCINATE XL 50 MG TAB PO SCH (09:39)
[2023-03-15] MEDS: SODIUM CHLORIDE 0.9% 1,000 ML IV SCH (09:41)
[2023-03-15] MEDS ORDERED: ZINC SULFATE 220mg CAP or TAB PO ONE (11:30)
[2023-03-15] MEDS: ATORVASTATIN 20 MG TAB PO SCH (22:25)
[2023-03-15] MEDS: LISINOPRIL 20 MG TAB PO SCH (23:30)
[2023-03-16] VITALS (8 sets, daily range): BP systolic 118–153; BP diastolic 41–65; PULSE 67–86; RESP 16–19; TEMP 97.6–98.2; O2SAT 95–98
[2023-03-16] MEDS: SODIUM CHLORIDE 0.9% 1,000 ML IV SCH ×4 (02:20→20:18)
[2023-03-16] MEDS: LEVOTHYROXINE SODIUM 50 MCG TAB PO SCH (06:46)
[2023-03-16] MEDS: cefTRIAXone 1GM/50ML D5W 50 ML IV SCH (08:58)
[2023-03-16] MEDS: ENOXAPARIN SOD 30 MG/0.3 ML SYRINGE SC SCH (08:58)
[2023-03-16] MEDS: CHOLECALCIFEROL (VITD3) 2,000 UNIT CAP/TAB PO SCH (09:00)
[2023-03-16] MEDS: ASCORBIC ACID 1,000 MG TAB PO SCH (09:00)
[2023-03-16] MEDS: DOCUSATE SOD 100 MG CAP PO SCH ×2 (09:00→21:34)
[2023-03-16] MEDS: LISINOPRIL 20 MG TAB PO SCH ×2 (09:01→22:16)
[2023-03-16] MEDS: METOPROLOL SUCCINATE XL 50 MG TAB PO SCH (09:01)
[2023-03-16] MEDS: DexAMETHasone SOD PHOS 10MG/1ML VIAL INJ IV SCH (09:02)
[2023-03-16] MEDS: ZINC SULFATE 220mg CAP or TAB PO SCH (09:07)
[2023-03-16] MEDS: SERTRALINE HCL 50 MG TAB PO SCH (09:07)
[2023-03-16] MEDS ORDERED: LISINOPRIL 20 MG TAB PO SCH ×2 (10:00→23:00)
[2023-03-16 12:22] LABS: Base Excess -5.2 mmol/L (-2.0-2.0)
[2023-03-16] MEDS: ATORVASTATIN 20 MG TAB PO SCH (21:34)
[2023-03-17] VITALS (9 sets, daily range): BP systolic 106–137; BP diastolic 48–67; PULSE 72–94; RESP 16–19; TEMP 97.8–98.4; O2SAT 93–99
[2023-03-17] MEDS: LEVOTHYROXINE SODIUM 50 MCG TAB PO SCH (06:20)
[2023-03-17] MEDS: cefTRIAXone 1GM/50ML D5W 50 ML IV SCH (08:36)
[2023-03-17] MEDS: DexAMETHasone SOD PHOS 10MG/1ML VIAL INJ IV SCH (08:36)
[2023-03-17] MEDS: LISINOPRIL 20 MG TAB PO SCH ×2 (08:37→21:29)
[2023-03-17] MEDS: CHOLECALCIFEROL (VITD3) 2,000 UNIT CAP/TAB PO SCH (08:38)
[2023-03-17] MEDS: ENOXAPARIN SOD 30 MG/0.3 ML SYRINGE SC SCH (08:38)
[2023-03-17] MEDS: METOPROLOL SUCCINATE XL 50 MG TAB PO SCH (08:38)
[2023-03-17] MEDS: DOCUSATE SOD 100 MG CAP PO SCH ×2 (08:38→21:29)
[2023-03-17] MEDS: SERTRALINE HCL 50 MG TAB PO SCH (08:38)
[2023-03-17] MEDS: ASCORBIC ACID 1,000 MG TAB PO SCH (08:39)
[2023-03-17] MEDS: ZINC SULFATE 220mg CAP or TAB PO SCH (08:39)
[2023-03-17] MEDS ORDERED: DEXTROSE (50%) 50ML SYRG IV PRN (13:45)
[2023-03-17] MEDS: SODIUM CHLORIDE 0.9% 1,000 ML IV SCH (14:11)
[2023-03-17] MEDS: InsuLIN REG 1unit/0.01ml Soln (100units/ml) SC SCH ×2 (17:00→21:37)
[2023-03-17] MEDS: ACCU-CHEK COMFORT CURVE STRIP VI SCH ×2 (17:27→21:30)
[2023-03-17] MEDS ORDERED: EPOETIN ALFA-EPBX 10,000 UNIT/1ML VIAL SC ONE (18:00)
[2023-03-17] MEDS: ATORVASTATIN 20 MG TAB PO SCH (21:29)
[2023-03-18] VITALS (8 sets, daily range): BP systolic 121–150; BP diastolic 50–75; PULSE 77–84; RESP 17–20; TEMP 97.4–98; O2SAT 94–97
[2023-03-18] MEDS: SODIUM CHLORIDE 0.9% 1,000 ML IV SCH (05:29)
[2023-03-18 06:19] LABS: % Iron Saturation 31.6 % (15-50)
[2023-03-18 06:24] LABS: Alanine Aminotransferase 23 U/L (7-40); Albumin 3.5 g/dL (3.2-4.8); Alkaline Phosphatase 40 U/L (46-116); Anion Gap 9 (5-15); Aspartate Aminotransferase 22 U/L (13-40); Blood Urea Nitrogen 15 mg/dL (9-23); Calcium 9.5 mg/dL (8.5-10.1); Carbon Dioxide 22 mmol/L (20-30); Chloride 112 mmol/L (98-107); Glucose 74 mg/dL (74-106); Potassium 3.8 mmol/L (3.5-5.1); Sodium 143 mmol/L (136-145)
[2023-03-18 06:25] LABS: Bilirubin, Total 0.4 mg/dL (0.2-1.0); Total Protein 5.2 g/dL (5.7-8.2)
[2023-03-18] MEDS: ACCU-CHEK COMFORT CURVE STRIP VI SCH ×3 (06:25→21:34)
[2023-03-18] MEDS: InsuLIN REG 1unit/0.01ml Soln (100units/ml) SC SCH ×3 (06:27→21:48)
[2023-03-18] MEDS: LEVOTHYROXINE SODIUM 50 MCG TAB PO SCH (06:27)
[2023-03-18] MEDS: cefTRIAXone 1GM/50ML D5W 50 ML IV SCH (09:50)
[2023-03-18] MEDS: DexAMETHasone SOD PHOS 10MG/1ML VIAL INJ IV SCH (09:52)
[2023-03-18] MEDS: ENOXAPARIN SOD 30 MG/0.3 ML SYRINGE SC SCH (09:53)
[2023-03-18] MEDS: METOPROLOL SUCCINATE XL 50 MG TAB PO SCH (09:54)
[2023-03-18] MEDS: CHOLECALCIFEROL (VITD3) 2,000 UNIT CAP/TAB PO SCH (09:54)
[2023-03-18] MEDS: DOCUSATE SOD 100 MG CAP PO SCH ×2 (09:54→21:34)
[2023-03-18] MEDS: SERTRALINE HCL 50 MG TAB PO SCH (09:54)
[2023-03-18] MEDS: ZINC SULFATE 220mg CAP or TAB PO SCH (09:55)
[2023-03-18] MEDS: LISINOPRIL 20 MG TAB PO SCH ×2 (09:55→21:34)
[2023-03-18] MEDS: ASCORBIC ACID 1,000 MG TAB PO SCH (10:15)
[2023-03-18 10:17] LABS: Basophils # (auto) 0 10 ^3/uL (0-0.2); Basophils % (auto) 0.1 % (0.0-2.0); Eosinophils # (auto) 0.1 10 ^3/uL (0-0.8); Eosinophils % (auto) 1.3 % (0.0-7.0); Hematocrit 30.2 % (36.0-46.0); Hemoglobin 9.9 g/dL (12.2-16.2); Lymphocytes # (auto) 1.2 10 ^3/uL (0.4-5.4); Lymphocytes % (auto) 16.2 % (10.0-50.0); Mean Corpuscular Hemoglobin 31.7 pg (28.0-32.0); Mean Corpuscular Hgb Conc. 32.8 g/dL (32.0-36.0); Mean Corpuscular Volume 96.7 fL (80.0-100.0); Monocytes # (auto) 0.6 10 ^3/uL (0-1.3); Monocytes % (auto) 7.6 % (0.0-12.0); Neutrophils # (auto) 5.7 10 ^3/uL (1.6-8.6); Neutrophils % (auto) 74.8 % (37.0-80.0); Red Blood Cells 3.12 10^6/uL (4.0-5.20); Red Cell Distribution Width 13.4 % (11.8-14.3); White Blood Cell 7.6 10^3/uL (4.4-10.8)
[2023-03-18] MEDS: SODIUM FERR GLUC 62.5MG/5ML 125 MG in SODIUM CHL 0.9% 100 ML IV SCH (14:28)
[2023-03-18] MEDS: ATORVASTATIN 20 MG TAB PO SCH (21:34)
[2023-03-19] VITALS (9 sets, daily range): BP systolic 107–136; BP diastolic 41–59; PULSE 69–82; RESP 17; TEMP 36.7; O2SAT 96–99
[2023-03-19] MEDS: LEVOTHYROXINE SODIUM 50 MCG TAB PO SCH (06:21)
[2023-03-19] MEDS: ACCU-CHEK COMFORT CURVE STRIP VI SCH ×3 (06:21→12:33)
[2023-03-19] MEDS: InsuLIN REG 1unit/0.01ml Soln (100units/ml) SC SCH ×2 (06:42→11:30)
[2023-03-19 07:01] LABS: Anion Gap 7 (5-15); Carbon Dioxide 24 mmol/L (20-30); Chloride 112 mmol/L (98-107); Potassium 3.7 mmol/L (3.5-5.1); Sodium 143 mmol/L (136-145)
[2023-03-19 07:02] LABS: Calcium 9.2 mg/dL (8.7-10.4)
[2023-03-19 07:07] LABS: BUN/Creatinine Ratio 13.9 (10.0-20.0); Blood Urea Nitrogen 14 mg/dL (9-23); Glucose 80 mg/dL (74-106)
[2023-03-19 07:23] LABS: Basophils # (auto) 0 10 ^3/uL (0-0.2); Eosinophils # (auto) 0.1 10 ^3/uL (0-0.8); Eosinophils % (auto) 1.2 % (0.0-7.0); Hematocrit 28.2 % (36.0-46.0); Hemoglobin 9.3 g/dL (12.2-16.2); Lymphocytes # (auto) 0.9 10 ^3/uL (0.4-5.4); Lymphocytes % (auto) 15.6 % (10.0-50.0); Mean Corpuscular Hemoglobin 31.9 pg (28.0-32.0); Mean Corpuscular Hgb Conc. 32.9 g/dL (32.0-36.0); Monocytes # (auto) 0.5 10 ^3/uL (0-1.3); Monocytes % (auto) 7.8 % (0.0-12.0); Neutrophils # (auto) 4.5 10 ^3/uL (1.6-8.6); Neutrophils % (auto) 75.4 % (37.0-80.0); Nucleated Red Blood Cells % 0.1 %; Red Blood Cells 2.91 10^6/uL (4.0-5.20); Red Cell Distribution Width 13.7 % (11.8-14.3)
[2023-03-19] MEDS: cefTRIAXone 1GM/50ML D5W 50 ML IV SCH (09:11)
[2023-03-19] MEDS: DOCUSATE SOD 100 MG CAP PO SCH (09:55)
[2023-03-19] MEDS: METOPROLOL SUCCINATE XL 50 MG TAB PO SCH (09:55)
[2023-03-19] MEDS: CHOLECALCIFEROL (VITD3) 2,000 UNIT CAP/TAB PO SCH (09:56)
[2023-03-19] MEDS: LISINOPRIL 20 MG TAB PO SCH (09:57)
[2023-03-19] MEDS: SERTRALINE HCL 50 MG TAB PO SCH (09:58)
[2023-03-19] MEDS: ENOXAPARIN SOD 30 MG/0.3 ML SYRINGE SC SCH (09:59)
[2023-03-19] MEDS: ASCORBIC ACID 1,000 MG TAB PO SCH (09:59)
[2023-03-19] MEDS: ZINC SULFATE 220mg CAP or TAB PO SCH (10:00)
[2023-03-19] MEDS: SODIUM FERR GLUC 62.5MG/5ML 125 MG in SODIUM CHL 0.9% 100 ML IV SCH (12:33)
== END 2023-03-19 17:00 | disposition home or self-care (01) | DRG 177 ==
LOC: ER 13:52 → TELE 17:10 → TELE-CENTR 22:05
PROVIDERS: ADMIT Nurse Practitioner Family; ATTEND Internal Medicine Cardiovascular Disease
DX: U07.1 COVID-19 (principal); J12.82 Pneumonia due to coronavirus disease 2019; J96.01 Acute respiratory failure with hypoxia; N17.9 Acute kidney failure, unspecified; E03.9 Hypothyroidism, unspecified; E11.9 Type 2 diabetes mellitus without complications; E78.5 Hyperlipidemia, unspecified; E86.9 Volume depletion, unspecified; I11.0 Hypertensive heart disease with heart failure; I48.91 Unspecified atrial fibrillation; I50.9 Heart failure, unspecified; M19.90 Unspecified osteoarthritis, unspecified site; Z88.1 Allergy status to other antibiotic agents; Z90.710 Acquired absence of both cervix and uterus; Z96.652 Presence of left artificial knee joint; D46.9 Myelodysplastic syndrome, unspecified
CPT/HCPCS: 36415; 36600; 71045; 80048; 80053; 81001; 82306; 82728; 82805; 82962; 83036; 83540; 83550; 83605; 83615; 83735; 84443; 84484; 85025; 85045; 85379; 85610; 85730; 86141; 87040; 87426; 93005; 93970; 96365; 96375; 97110; 97116; 97163; 99291; G0378; J0696; J1100; J1815

== ENCOUNTER → 2023-04-02 | Outpatient (CLI) | payer MEDICARE, OTHER ==
[~2023-04-02] MED LIST changes: +ASPI325T4 PO; +FEXO-42 PO; -LEVO112T32 PO; +LEVO150T10 PO; -LISI-33 PO; -METO-6 PO; +METO1TAB9 PO; +POTA-211 PO; +PREG50CA PO
[2023-04-02 08:30] LABS: Basophils # (auto) 0 10 ^3/uL (0-0.2); Basophils % (auto) 0.6 % (0.0-2.0); Eosinophils # (auto) 0.1 10 ^3/uL (0-0.8); Eosinophils % (auto) 1.8 % (0.0-7.0); Hematocrit 29.2 % (36.0-46.0); Hemoglobin 9.6 g/dL (12.2-16.2); Lymphocytes # (auto) 0.7 10 ^3/uL (0.4-5.4); Lymphocytes % (auto) 10.1 % (10.0-50.0); Mean Corpuscular Hemoglobin 32.1 pg (28.0-32.0); Mean Corpuscular Volume 97.4 fL (80.0-100.0); Monocytes # (auto) 0.9 10 ^3/uL (0-1.3); Monocytes % (auto) 12.6 % (0.0-12.0); Neutrophils # (auto) 5.2 10 ^3/uL (1.6-8.6); Neutrophils % (auto) 74.9 % (37.0-80.0); Red Blood Cells 2.99 10^6/uL (4.0-5.20); Red Cell Distribution Width 14.3 % (11.8-14.3); White Blood Cell 6.9 10^3/uL (4.4-10.8)
[2023-04-02 08:58] LABS: Alanine Aminotransferase 14 U/L (7-40); Alkaline Phosphatase 58 U/L (46-116); Anion Gap 12 (5-15); BUN/Creatinine Ratio 20.9 (10.0-20.0); Blood Urea Nitrogen 27 mg/dL (9-23); Calcium 10.5 mg/dL (8.5-10.1); Carbon Dioxide 20 mmol/L (20-30); Chloride 107 mmol/L (98-107); Glucose 124 mg/dL (74-106); LDL Cholesterol 65 mg/dL (< 100); Potassium 4.1 mmol/L (3.5-5.1); Sodium 139 mmol/L (136-145); Triglycerides 136 mg/dL (< 150)
[2023-04-02 08:59] LABS: Albumin 4.3 g/dL (3.2-4.8); Aspartate Aminotransferase 16 U/L (13-40); Cholesterol 124 mg/dL (< 200)
[2023-04-02 09:00] LABS: Bilirubin, Total 0.4 mg/dL (0.2-1.0); HDL Cholesterol 35 mg/dL (40-59); Total Protein 6.7 g/dL (5.7-8.2)
[2023-04-03 11:24] LABS: Free T4 (Free Thyroxine) 0.94 ng/dL (0.89-1.76)
== END | disposition home or self-care (01) ==
LOC: LAB 07:54
PROVIDERS: ATTEND Internal Medicine Cardiovascular Disease
DX: I10 Essential (primary) hypertension (principal); E11.9 Type 2 diabetes mellitus without complications; D64.9 Anemia, unspecified; E78.00 Pure hypercholesterolemia, unspecified; E61.1 Iron deficiency; N39.0 Urinary tract infection, site not specified
CPT/HCPCS: 36415; 80053; 80061; 82607; 83036; 83540; 84439; 84443; 85025

== ENCOUNTER → 2023-05-05 | Outpatient (CLI) | payer MEDICARE, OTHER ==
[~2023-05-05] MED LIST changes: +FERRELCIT IV ONE; +PATIENTS OWN MEDICATION IV SCH; +SODIUM FERR GLUC 62.5MG/5ML 125 MG in SODIUM CHL 0.9% 100 ML IV ONE; +SODIUM FERRIC GLUC CPLEX 62.5MG/5ML VIAL IV ONE
[2023-05-05 13:16] VITALS: BP 124/60; PULSE 96; RESP 18; O2SAT 96
[2023-05-05 14:50] VITALS: BP 141/72; PULSE 93; RESP 18; O2SAT 96
== END | disposition home or self-care (01) ==
LOC: CHF HDHVI 13:17
PROVIDERS: ATTEND Internal Medicine Cardiovascular Disease
DX: D64.9 Anemia, unspecified (principal); E78.00 Pure hypercholesterolemia, unspecified; E11.9 Type 2 diabetes mellitus without complications; I11.0 Hypertensive heart disease with heart failure; I50.9 Heart failure, unspecified; E03.9 Hypothyroidism, unspecified; M19.90 Unspecified osteoarthritis, unspecified site; Z90.710 Acquired absence of both cervix and uterus; Z88.1 Allergy status to other antibiotic agents
CPT/HCPCS: 96365; G0463; J2916

== ENCOUNTER → 2023-05-16 | Outpatient (CLI) | payer MEDICARE, OTHER ==
[~2023-05-16] MED LIST changes: -FERRELCIT IV ONE; -PATIENTS OWN MEDICATION IV SCH; -SODIUM FERR GLUC 62.5MG/5ML 125 MG in SODIUM CHL 0.9% 100 ML IV ONE; -SODIUM FERRIC GLUC CPLEX 62.5MG/5ML VIAL IV ONE
[2023-05-16 10:13] LABS: Basophils # (auto) 0.1 10 ^3/uL (0-0.2); Basophils % (auto) 0.8 % (0.0-2.0); Eosinophils # (auto) 0.3 10 ^3/uL (0-0.8); Eosinophils % (auto) 4.6 % (0.0-7.0); Hematocrit 31.9 % (36.0-46.0); Hemoglobin 10.4 g/dL (12.2-16.2); Lymphocytes # (auto) 0.9 10 ^3/uL (0.4-5.4); Lymphocytes % (auto) 12.6 % (10.0-50.0); Mean Corpuscular Hgb Conc. 32.6 g/dL (32.0-36.0); Mean Corpuscular Volume 95.2 fL (80.0-100.0); Monocytes # (auto) 0.5 10 ^3/uL (0-1.3); Monocytes % (auto) 6.9 % (0.0-12.0); Neutrophils # (auto) 5.5 10 ^3/uL (1.6-8.6); Neutrophils % (auto) 75.1 % (37.0-80.0); Nucleated Red Blood Cells % 0.1 %; Red Blood Cells 3.35 10^6/uL (4.0-5.20); Red Cell Distribution Width 16.3 % (11.8-14.3); White Blood Cell 7.3 10^3/uL (4.4-10.8)
[2023-05-16 10:36] LABS: Alanine Aminotransferase 23 U/L (7-40); Albumin 3.8 g/dL (3.2-4.8); Alkaline Phosphatase 69 U/L (46-116); Anion Gap 5 (5-15); Aspartate Aminotransferase 22 U/L (13-40); BUN/Creatinine Ratio 22.5 (10.0-20.0); Bilirubin, Total 0.5 mg/dL (0.2-1.0); Blood Urea Nitrogen 23 mg/dL (9-23); Calcium 9.8 mg/dL (8.5-10.1); Carbon Dioxide 31 mmol/L (20-30); Chloride 108 mmol/L (98-107); Glucose 96 mg/dL (74-106); Potassium 3.8 mmol/L (3.5-5.1); Sodium 144 mmol/L (136-145)
[2023-05-16 11:06] LABS: % Iron Saturation 37.7 % (15-50)
[2023-05-19 07:06] LABS: Alpha-1-Globulin 0.3 g/dL (0.0-0.4); Alpha-2-Globulin 0.9 g/dL (0.4-1.0); Gamma Globulin 0.9 g/dL (0.4-1.8); Globulin Total 2.9 g/dL (2.2-3.9); Protein Total Serum 5.9 g/dL (6.0-8.5)
== END | disposition home or self-care (01) ==
LOC: LAB 09:41
PROVIDERS: ATTEND Internal Medicine
DX: D64.9 Anemia, unspecified (principal)
CPT/HCPCS: 36415; 80053; 82728; 83540; 83550; 83615; 84155; 84165; 85025; 86880

== ENCOUNTER → 2023-05-19 | Outpatient (CLI) | payer MEDICARE, OTHER ==
[~2023-05-19] VITALS: Ht 30.5 cm; Wt 0.5 kg
[2023-05-19 12:45] VITALS: BP 138/62; PULSE 81; RESP 16; O2SAT 96
[2023-05-19] MEDS: SODIUM FERRIC GLUC CPLEX 62.5MG/5ML VIAL IV ONE ×2 (12:48→14:19)
[2023-05-19 14:07] VITALS: BP 157/70; PULSE 75; RESP 18; O2SAT 96
== END | disposition home or self-care (01) ==
LOC: CHF HDHVI 12:41
PROVIDERS: ATTEND Internal Medicine Cardiovascular Disease
DX: D50.9 Iron deficiency anemia, unspecified (principal); E03.9 Hypothyroidism, unspecified; E78.00 Pure hypercholesterolemia, unspecified; E11.9 Type 2 diabetes mellitus without complications; M19.90 Unspecified osteoarthritis, unspecified site; I11.0 Hypertensive heart disease with heart failure; I50.9 Heart failure, unspecified; Z90.710 Acquired absence of both cervix and uterus; Z90.49 Acquired absence of other specified parts of digestive tract; Z88.5 Allergy status to narcotic agent; Z88.1 Allergy status to other antibiotic agents; Z88.8 Allergy status to other drugs, medicaments and biological substances; Z91.013 Allergy to seafood; Z79.4 Long term (current) use of insulin; Z79.899 Other long term (current) drug therapy; Z98.890 Other specified postprocedural states
CPT/HCPCS: 96365; G0463; J2916

== ENCOUNTER → 2023-09-08 | Outpatient (CLI) | payer MEDICARE, OTHER ==
[~2023-09-08] VITALS: Ht 154.9 cm; Wt 65.3 kg
[~2023-09-08] MED LIST changes: +ADENOSINE 55 MG in GIVE UN-DILUTED 0 ML IV ONE; +ADENOSINE 90 MG/30 ML INJ IV ONE; -ASPI325T4 PO; +ASPI325T6 PO
== END | disposition home or self-care (01) ==
LOC: Rad HDHVI 08:16
PROVIDERS: ATTEND Internal Medicine Cardiovascular Disease
DX: I11.0 Hypertensive heart disease with heart failure (principal); I50.43 Acute on chronic combined systolic (congestive) and diastolic (congestive) heart failure; E78.00 Pure hypercholesterolemia, unspecified; R06.02 Shortness of breath; I49.5 Sick sinus syndrome; Z82.49 Family history of ischemic heart disease and other diseases of the circulatory system; Z95.5 Presence of coronary angioplasty implant and graft
CPT/HCPCS: 78452; 93005; 96374; 96375; A9500; J0153

== ENCOUNTER 2024-07-02 02:08 | Inpatient (IN) | payer MEDICARE, OTHER ==
[~2024-07-02] VITALS: Ht 154.9 cm; Wt 75.6 kg
[2024-07-02] VITALS (11 sets, daily range): BP systolic 139–172; BP diastolic 66–88; PULSE 76–96; RESP 16–20; TEMP 97.4–98.7; O2SAT 92–95
[~2024-07-02 02:08] MED LIST changes: -ADENOSINE 55 MG in GIVE UN-DILUTED 0 ML IV ONE; -ADENOSINE 90 MG/30 ML INJ IV ONE; +LEVO112T4 PO; +OMEP-448 PO
--- NOTE | 2024-07-02 03:11 | DVH ---
CHEST RADIOGRAPH Indication: sob Technique: Single frontal view of the chest was obtained COMPARISON: XY CHEST PORTABLE on DOS: 03/18/23, XY CHEST PORTABLE on DOS: 03/16/23, XY CHEST PORTABLE on DOS: 03/15/23, XY CHEST PORTABLE on DOS: 03/14/23 FINDINGS: Lines and Tubes: Left anterior chest wall dual lead cardiac pacing device. Lungs: Clear. Chronic appearing bilateral interstitial pulmonary markings noted. Pleura: No effusion. No pneumothorax. Cardiomediastinal contours: Unremarkable Bones: Unremarkable IMPRESSION: 1. No acute disease. 2. Chronic appearing bilateral interstitial pulmonary markings.
--- NOTE | 2024-07-02 03:25 | ED.PDOC ---
SOB-HPI HPI Comments 84 year old female came to ER for shortness of breath. Patient has history of hypertension status post pacemaker insertion. Few hours ago, patient started experiencing nasal congestion, chest tightness, wheezing, palpitations and shortness of breath. Patient states she was unable to sleep because of the symptoms. Patient is saturating 94% on room air. Chief Complaint: Shortness of Breath Time Seen by MD: 03:24 Primary Care Provider: ALEJANDRINA Reviewed notes: Nurses Notes Information Source: Patient Mode of Arrival: Ambulatory Severity: Moderate Timing: Hours Duration: Since onset Context: At Rest, With Light Exertion Modifying Factors: Nothing Associated Signs and Symptoms: Wheeze, Cough, Nasal Congestion, Chest Pain Past Medical History PAST MEDICAL HISTORY: AFIB, High Lipids, HTN, Thyroid Past Medical History (Other): COVID 19 Surgical History: Appendectomy, Hysterectomy, Pacemaker, Tonsillectomy ANTIQUE FURNITURE RESTORER History: No Pertinent ANTIQUE FURNITURE RESTORER History Family History Family History: Reviewed,noncontributory to illness Social History Smoker: Non-Smoker Alcohol: Denies ETOH Use Drugs: Denies Drug Use Lives In: Home Constitutional: denies: chills, diaphoresis, fatigue, fever, malaise, sweats, weakness, others EENTM: reports: nose congestion; denies: blurred vision, double vision, ear bleeding, ear discharge, ear drainage, ear pain, ear ringing, eye pain, eye redness, hearing loss, mouth pain, mouth swelling, nasal discharge, nose bleedi ng, nose pain, photophobia, tearing, throat pain, throat swelling, voice changes, others Respiratory: reports: SOB at rest, shortness of breath, wheezing; denies: cough, hemoptysis, orthopnea, SOB with excertion, stridor, others Cardiovascular: reports: chest pain, palpitations; denies: dizzy spells, diaphoresis, Dyspnea on exertion, edema, irregular heart beat, left arm pain, lightheadedness, PND, syncope, others Gastrointestinal: denies: abdomen distended, abdominal pain, blood streaked bowels, constipated, diarrhea, dysphagia, difficulty swallowing, hematemesis, melena, nausea, poor appetite, poor fluid intake, rectal bleeding, rectal pain, vomiting, others Genitourinary: denies: abnormal vagina bleeding, burning, dyspareunia, dysuria, flank pain, frequency, hematuria, incontinence, pain, , vagina discharge, urgency, others Neurological: denies: dizziness, fainting, headache, left sided numbness, left sided weakness, numbness, paresthesia, pre-existing deficit, right sided numbness, right sided weakness, seizure, speech problems, tingling, tremors, weakness, others Musculoskeletal: denies: back pain, gout, joint pain, joint swelling, muscle p ain, muscle stiffness, neck pain, others Integumetry: reports: dryness; denies: bruises, change in color, change in hair/nails, laceration, lesions, lumps, rash, wounds, others Allergic/Immunocompromised: denies: Difficulty Healing, Frequent Infections, Hives, Itching, others Hematologic/Lymphatic: denies: anemia, blood clots, easy bleeding, easy bruising, swollen glands, others Physical Exam General Appearance: No Apparent Distress, Normal HEENT: Normal ENT Inspection, Pharynx Normal, TMs Normal Neck: Full Range of Motion, Non-Tender, Normal, Normal Inspection Respiratory: Chest Non-Tender, Lungs Clear, No Accessory Muscle Use, No Respiratory Distress, Normal Breath Sounds Cardiovascular: No Edema, No JVD, No Murmur, No Gallop, Normal Peripheral Pulses, Regular Rate/Rhythm Breast Exam: Deferred Gastrointestinal: No Organomegaly, Non Tender, No Pulsatile Mass, Normal Bowel Sounds, Soft Genitalia: Deferred Pelvic: Deferred Rectal: Deferred Extremities: No calf tenderness, Normal capillary refill, Normal inspection, Normal range of motion, Non-tender, No pedal edema Musculoskeletal : Apperance: Normal Neurologic: Alert, inside sales supervisor II-XII nml as Tested, No Motor Deficits, Normal Affect, Normal Mood, No Sensory Deficits Cerebellar Function: Normal Reflexes: Normal Skin: Dry, Normal Color, Warm Lymphatic: No Adenopathy Was a procedure done? Was a procedure done?: No Differential Dx Differential Diagnosis: Anxiety, Asthma, Bronchitis, CHF, COPD, Myocardial infarction, Pneumonia, Respiratory Distress, URI X-Ray, Labs, Meds, VS Vital Signs Date Time Temp Pulse Resp B/P (MAP) Pulse Ox O2 Delivery O2 Flow Rate FiO2 07/02/24 04:30 94 Room Air* 0 21 07/02/24 04:30 97.7 71 14 147/70 (95) 97.7 07/02/24 02:59 86 07/02/24 02:30 18 94 Room Air* 0 21 07/02/24 02:30 98.1 83 18 154/71 (98) 94 98.1 Lab Test 07/02/24 04:25 07/02/24 03:17 Range/Units Troponin I High Sensitivity 13 10 </=34 ng/L White Blood Count 9.8 4.4-10.8 10^3/uL Red Blood Count 3.94 L 4.0-5.20 10^6/uL Hemoglobin 12.6 12.2-16.2 g/dL Hematocrit 37.6 36.0-46.0 % Mean Corpuscular Volume 95.3 80.0-100.0 fL Mean Corpuscular Hemoglobin 31.9 28.0-32.0 pg Mean Corpuscular Hemoglobin Concent 33.5 32.0-36.0 g/dL Red Cell Distribution Width 14.6 H 11.8-14.3 % Platelet Count 153 140-450 10^3/uL Mean Platelet Volume 7.9 6.9-10.8 fL Neutrophils (%) (Auto) 82.9 H 37.0-80.0 % Lymphocytes (%) (Auto) 7.8 L 10.0-50.0 % Monocytes (%) (Auto) 7.5 0.0-12.0 % Eosinophils (%) (Auto) 1.6 0.0-7.0 % Basophils (%) (Auto) 0.2 0.0-2.0 % Neutrophils # (Auto) 8.1 1.6-8.6 10 ^3/uL Lymphocytes # (Auto) 0.8 0.4-5.4 10 ^3/uL Monocytes # (Auto) 0.7 0-1.3 10 ^3/uL Eosinophils # (Auto) 0.2 0-0.8 10 ^3/uL Basophils # (Auto) 0 0-0.2 10 ^3/uL Nucleated Red Blood Cells 0.0 % Sodium Level 143 136-145 mmol/L Potassium Level 4.1 3.5-5.1 mmol/L Chloride Level 109 H 98-107 mmol/L Carbon Dioxide Level 27 20-31 mmol/L Anion Gap 7 5-15 Blood Urea Nitrogen 15 9-23 mg/dL Creatinine 1.00 0.550-1.02 mg/dL Glomerular Filtration Rate Calc 55 >90 mL/min BUN/Creatinine Ratio 15.0 10.0-20.0 Serum Glucose 124 H 74-106 mg/dL Calcium Level 10.4 8.7-10.4 mg/dL B-Type Natriuretic Peptide 446.88 0-100 pg/mL CHEST RADIOGRAPH Indication: sob Technique: Single frontal view of the chest was obtained COMPARISON: XY CHEST PORTABLE on DOS: 03/18/23, XY CHEST PORTABLE on DOS: 03/16/23, XY CHEST PORTABLE on DOS: 03/15/23, XY CHEST PORTABLE on DOS: 03/14/23 FINDINGS: Lines and Tubes: Left anterior chest wall dual lead cardiac pacing device. Lungs: Clear. Chronic appearing bilateral interstitial pulmonary markings noted. Pleura: No effusion. No pneumothorax. Cardiomediastinal contours: Unremarkable Bones: Unremarkable IMPRESSION: 1. No acute disease. 2. Chronic appearing bilateral interstitial pulmonary markings. Time of 1ST Reevaluation: 03:02 Reevaluation 1ST: Unchanged Patient Education/Counseling: Diagnosis, Treatment Family Education/Counseling: No Family Present Departure 1 Departure Time of Disposition: 05:39 (Patient with shortness of breath and description of chest pressure. Patient's EKGs were nonischemic initial troponins negative. We will admit patient for further workup and expert consult) Impression: Primary Impression: Palpitations Additional Impression: Shortness of breath Disposition: ADMITTED INPATIENT Admit to: Med Surg Condition: Serious Critical Care Note Critical Care Time?: Yes (35 min-critical care time only) Critical care comment: Shortness of breath Authorized and Performed by: Farzaneh Clifton MD Total critical care time: Approximately 39 minutes Due to a high probability of clinically significant, life threatening deterioration, the patient required my highest level of preparedness to i ntervene emergently and I personally spent this critical care time directly and personally managing the patient. This critical care time included obtaining a history; examining the patient; pulse oximetry; ordering and review of studies; arranging urgent treatment with development of a management plan; evaluation of patient's response to treatment; frequent reassessment; and, discussions with other providers. This critical care time was performed to assess and manage the high probability of imminent, life-threatening deterioration that could result in multi-organ failure. It was exclusive of separately billable procedures and treating other patients and teaching time. Please see my other sections and the rest of the note for further information on patient assessment and treatment. Stability Stability form required: No Heart Score Heart Score: Heart Score Response (Comments) Value History Moderate Suspicious 1 EKG Repolarization Disturb 1 Age >65 2 Risk Factors >3 or Hx ASHD 2 Troponin Normal limit 0 Total 6 I personally scribed for FARZANEH CLIFTON MD ([facility] on 07/02/24 at 03:25. Electronically submitted by Chase Barnard ([facility]). I personally scribed for FARZANEH CLIFTON MD ([facility]) on 07/02/24 at 04:28. Electronically submitted by Chase Barnard ([facility]). FARZANEH CLIFTON MD Jul 02, 2024 03:25
[2024-07-02 03:46] LABS: Potassium 4.1 mmol/L (3.5-5.1); Sodium 143 mmol/L (136-145)
[2024-07-02 03:47] LABS: Anion Gap 7 (5-15); Calcium 10.4 mg/dL (8.7-10.4); Carbon Dioxide 27 mmol/L (20-31)
[2024-07-02 03:50] LABS: Chloride 109 mmol/L (98-107)
[2024-07-02 03:54] LABS: Blood Urea Nitrogen 15 mg/dL (9-23)
[2024-07-02 03:59] LABS: Basophils # (auto) 0 10 ^3/uL (0-0.2); Basophils % (auto) 0.2 % (0.0-2.0); Eosinophils # (auto) 0.2 10 ^3/uL (0-0.8); Eosinophils % (auto) 1.6 % (0.0-7.0); Hematocrit 37.6 % (36.0-46.0); Hemoglobin 12.6 g/dL (12.2-16.2); Lymphocytes # (auto) 0.8 10 ^3/uL (0.4-5.4); Lymphocytes % (auto) 7.8 % (10.0-50.0); Mean Corpuscular Hemoglobin 31.9 pg (28.0-32.0); Mean Corpuscular Hgb Conc. 33.5 g/dL (32.0-36.0); Mean Corpuscular Volume 95.3 fL (80.0-100.0); Monocytes # (auto) 0.7 10 ^3/uL (0-1.3); Monocytes % (auto) 7.5 % (0.0-12.0); Neutrophils # (auto) 8.1 10 ^3/uL (1.6-8.6); Neutrophils % (auto) 82.9 % (37.0-80.0); Platelet Count (auto) 153 10^3/uL (140-450); Red Blood Cells 3.94 10^6/uL (4.0-5.20); Red Cell Distribution Width 14.6 % (11.8-14.3); White Blood Cell 9.8 10^3/uL (4.4-10.8)
[2024-07-02 04:05] LABS: Glucose 124 mg/dL (74-106)
[2024-07-02] MEDS ORDERED: MORPHINE SULFATE INJ 2 MG/ml SYRG IV PRN (07:45)
[2024-07-02] MEDS ORDERED: ONDANSETRON HCL 4 MG/2 ML VIAL IV PRN (07:45)
[2024-07-02] MEDS ORDERED: MORPHINE SULFATE 4 MG/ML SYR/VIAL IV PRN (07:45)
[2024-07-02] MEDS ORDERED: NITROGLYCERIN 0.4 MG SL TAB SL PRN ×2 (07:45)
[2024-07-02] MEDS ORDERED: DEXTROSE (50%) 50ML SYRG IV PRN (07:45)
--- NOTE | 2024-07-02 07:53 | DVHHP2 ---
History of Present Illness Reason for Visit: Shortness of breath with palpitations History of Present Illness Graciela Salas is an 84-year-old female with past medical history of hard of hearing, hypertension, hyperlipidemia, diabetes type 2, AFib, hypothyroidism, anemia, pacemaker, COVID, appendectomy, hysterectomy, left total knee replacement, and tonsillectomy who presents to the ED with shortness of breath with palpitations. Patient states that she was sleeping and it occurred last night woke her up from her sleep. Patient also reports that in March of 2024 she had COVID but no other recent illnesses. Patient uses a Rollator for ambulation. Naman is at chair side and states that he was also sick during of last year. 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 Patient denies fever, chills, lightheadedness, weakness, dizziness, recent trauma or injury, recent travels, abdominal pain, nausea, vomiting, or diarrhea. Cardiovascular: AFIB, HTN, hyperipidemia Heme/Onc: Anemia NOS Endocrine: Diabetes, Hypothyroidism Past Medical History COVID Hard of hearing Past Surgical History: Appendectomy, Hysterectomy, Other (Pacemaker placement and left total knee replacement in 2015), Tonsillectomy Smoke: No ALCOHOL: none Drugs: None Lives: with Family Domestic Violence: Neg Review of Systems Respiratory: Shortness of breath Cardiovascular: Palpitations Allergies: Coded Allergies: Erythromycin (Verified Allergy, Severe, 11/21/13) Fentanyl (Verified Allergy, Severe, 11/21/13) Fish Oil (Verified Allergy, Severe, 11/21/13) Gatifloxacin (Verified Allergy, Severe, 11/21/13) Sulfa Antibiotics (Verified Allergy, Severe, 11/21/13) Codeine (Verified Allergy, Mild, 11/21/13) Amitriptyline (Verified Allergy, Unknown, 07/02/24) Amlodipine (Verified Allergy, Unknown, 07/02/24) Exam Vital Signs Vital Signs Date Time Temp Pulse Resp B/P (MAP) Pulse Ox O2 Delivery O2 Flow Rate FiO2 07/02/24 07:31 98.0 91 16 157/83 (107) 92 98.0 07/02/24 04:30 Room Air* 0 21 General Appearance: Alert, Oriented X3, Cooperative, No acute distress HEENT: Atraumatic, PERRLA, EOMI, Mucous membr. moist/pink Respiratory: Normal air movement Cardiovascular: Normal S1, Normal S2, No murmurs Abdominal: Normal bowel sounds, Soft, No tenderness, No hepatospenomegaly, No masses Extremities: No clubbing, No cyanosis Neuro: Normal speech, Normal tone, Sensation intact Psych/Mental Status: Mental status NL, Mood NL Labs/Xrays Labs Test 07/02/24 06:20 07/02/24 03:17 Range/Units Troponin I High Sensitivity 13 </=34 ng/L White Blood Count 9.8 4.4-10.8 10^3/uL Red Blood Count 3.94 L 4.0-5.20 10^6/uL Hemoglobin 12.6 12.2-16.2 g/dL Hematocrit 37.6 36.0-46.0 % Mean Corpuscular Volume 95.3 80.0-100.0 fL Mean Corpuscular Hemoglobin 31.9 28.0-32.0 pg Mean Corpuscular Hemoglobin Concent 33.5 32.0-36.0 g/dL Red Cell Distribution Width 14.6 H 11.8-14.3 % Platelet Count 153 140-450 10^3/uL Mean Platelet Volume 7.9 6.9-10.8 fL Neutrophils (%) (Auto) 82.9 H 37.0-80.0 % Lymphocytes (%) (Auto) 7.8 L 10.0-50.0 % Monocytes (%) (Auto) 7.5 0.0-12.0 % Eosinophils (%) (Auto) 1.6 0.0-7.0 % Basophils (%) (Auto) 0.2 0.0-2.0 % Neutrophils # (Auto) 8.1 1.6-8.6 10 ^3/uL Lymphocytes # (Auto) 0.8 0.4-5.4 10 ^3/uL Monocytes # (Auto) 0.7 0-1.3 10 ^3/uL Eosinophils # (Auto) 0.2 0-0.8 10 ^3/uL Basophils # (Auto) 0 0-0.2 10 ^3/uL Nucleated Red Blood Cells 0.0 % Sodium Level 143 136-145 mmol/L Potassium Level 4.1 3.5-5.1 mmol/L Chloride Level 109 H 98-107 mmol/L Carbon Dioxide Level 27 20-31 mmol/L Anion Gap 7 5-15 Blood Urea Nitrogen 15 9-23 mg/dL Creatinine 1.00 0.550-1.02 mg/dL Glomerular Filtration Rate Calc 55 >90 mL/min BUN/Creatinine Ratio 15.0 10.0-20.0 Serum Glucose 124 H 74-106 mg/dL Calcium Level 10.4 8.7-10.4 mg/dL B-Type Natriuretic Peptide 446.88 0-100 pg/mL CHEST RADIOGRAPH Indication: sob Technique: Single frontal view of the chest was obtained COMPARISON: XY CHEST PORTABLE on DOS: 03/18/23, XY CHEST PORTABLE on DOS: 03/07 , XY CHEST PORTABLE on DOS: 03/15/23, XY CHEST PORTABLE on DOS: 03/14/23 FINDINGS: Lines and Tubes: Left anterior chest wall dual lead cardiac pacing device. Lungs: Clear. Chronic appearing bilateral interstitial pulmonary markings noted. Pleura: No effusion. No pneumothorax. Cardiomediastinal contours: Unremarkable Bones: Unremarkable IMPRESSION: 1. No acute disease. 2. Chronic appearing bilateral interstitial pulmonary markings. Assessment/Plan Assessment/Plan Assessment Dyspnea with palpitations Hard of hearing ?Pneumonia Sick sinus syndrome History of pacemaker placement on 02/24/2015 History of hypertension History of hyperlipidemia History of diabetes type 2 History of AFib History of hypothyroidism History of anemia History of COVID-19 Plan Admit to tele Troponin negative x3 Chest x-ray noted BNP UA Hemoglobin A1c ISS and Accu-Cheks Last echo on 09/04/2023 EF less than 40% Echo ordered Aspirin Statin TSH Lipid panel Lovenox IV antibiotics-ceftriaxone Cardiology consult Home medications reconciled Discussed plan of care with patient, patient's spouse, and nurse DVT prophylaxis-Lovenox PUD prophylaxis-not indicated no history of GERD or GI bleed Plan discussed with: Patient, Spouse My Orders Orders - IZZY HARRISON Procedure Category Date Status Time Admit ADMIT 07/02/24 Transmitted 07:45 Code Status CODE 07/02/24 Transmitted 07:45 Vital Signs NORA 07/02/24 In Process 07:45 Fabrication Mig Welder NORA 07/02/24 In Process 07:45 Cardiac DIET 07/02/24 Transmitted Diet-2gna,Lofat,Lochol Breakfast Aspirin Tablet PHA 07/02/24 Logged 10:00 Atorvastatin (Lipitor) PHA 07/02/24 Logged 22:00 Morphine Sulfate PHA 07/02/24 Logged Injection 07:45 Acetaminophen Tablet PHA 07/02/24 Logged (Tylenol Tablet) 07:45 Complete Blood Count LAB 07/03/24 Verified 04:00 Basic Metabolic Panel LAB 07/03/24 Verified 04:00 Magnesium LAB 07/03/24 Verified 04:00 Echo 2d Mode Cardiac US 07/02/24 Logged DOP 07:45 Nitroglycerin PHA 07/02/24 Logged Sublingual (Ntrostat 07:45 Ondansetron Hcl PHA 07/02/24 Logged (Zofran) 07:45 Electrocardigram EKG 07/03/24 Logged 04:00 Troponin-I Hs LAB 07/02/24 Logged 07:45 Cardiac NORA 07/02/24 In Process Rehabilitation - Outpa Nitroglycerin PHA 07/02/24 Logged Sublingual (Ntrostat 07:45 Morphine Sulfate PHA 07/02/24 Logged Injection 07:45 Stat Ekg For Chest [facility] 07/02/24 In Process Pain 07:45 Notify Md Of Changes [facility] 07/02/24 In Process From Base 07:45 Field Artillery Officer For [facility] 07/02/24 In Process 24 Hours 07:45 Emergency Dysrhythmia [facility] 07/02/24 In Process Protocol 07:45 Rhythm Strips Once [facility] 07/02/24 In Process Every Shift 07:45 Oxygen By Nasal RT 07/02/24 Transmitted Cannula 07:45 Drug Screen LAB 07/02/24 Logged 07:45 Thyroid Stimulating LAB 07/02/24 Logged Hormone 07:45 Lipid Panel LAB 07/02/24 Logged 07:45 Hemoglobin A1c LAB 07/02/24 Logged 07:45 Glucose Blood PHA 07/02/24 Transmitted (Accu-Chek Comfort 11:30 Mild Sliding Scale PHA 07/02/24 Transmitted 11:30 Dextrose 50% Syringe PHA 07/02/24 Transmitted 07:45 * Cardiology Consult CONS 07/02/24 Transmitted 07:45 Ceftriaxone 1gm/50ml PHA 07/02/24 Logged D5w (Rocephin) 08:00 Enoxaparin Sodium PHA 07/02/24 Logged (Lovenox) 10:00 Date of Service: Jul 02, 2024 Billing Provider: IZZY HARRISON Common Visit Codes: [id number] INP/OBS CARE (HIGH) IZZY HARRISONP Jul 02, 2024 07:53
[2024-07-02] MEDS: ASPirin 81 mg TAB PO SCH (09:02)
[2024-07-02] MEDS: ENOXAPARIN SOD 30 MG/0.3 ML SYRINGE SC SCH (09:03)
[2024-07-02] MEDS: cefTRIAXone 1GM/50ML D5W 50 ML IV SCH (09:08)
--- NOTE | 2024-07-02 09:22 | DVHPN2 ---
Progress Note - Dictate Date Seen: Jul 02, 2024 Medical Necessity Reason Pt with a Central, PICC or Fol: No Subjective PT WITH SS COMPLEX HTN AFIB SSS S/P PPI DIABETES HYPOTHYROID NOW WITH CHAVEZ AND SOB MILD ELEVATION OF BNP vital signs Vital Sign Date Time Temp Pulse Resp B/P (MAP) Pulse Ox O2 Delivery O2 Flow Rate FiO2 07/02/24 08:37 Room Air* 0 21 07/02/24 07:31 98.0 91 16 157/83 (107) 92 98.0 medications Current Medications Medications Dose Ordered Sig/Jw Route Start Time Stop Time Status Last Admin Dose Admin Aspirin 81 mg DAILY PO 07/02/24 10:00 07/02/24 09:02 81 MG Atorvastatin Calcium 40 mg HS PO 07/02/24 22:00 Morphine Sulfate 2 mg Q30MP PRN IV 07/02/24 07:45 Acetaminophen 650 mg Q6HP PRN PO 07/02/24 07:45 Nitroglycerin 0.4 mg Q5MINP PRN SL 07/02/24 07:45 Ondansetron HCl 4 mg Q4HP PRN IV 07/02/24 07:45 Diagnostic Test (Pha) 1 strip ACHS 07/02/24 11:30 Insulin Human Regular ACHS SC 07/02/24 11:30 Dextrose 50 ml UD PRN IV 07/02/24 07:45 Ceftriaxone Sodium 50 ml @ 100 mls/hr DAILY@09 IV 07/02/24 08:00 07/02/24 09:08 100 MLS/HR Enoxaparin Sodium 30 mg DAILY SC 07/02/24 10:00 07/02/24 09:03 30 MG laboratory and microbiology Laboratory Tests 07/02/24 03:17 Test 07/02/24 03:17 Range/Units Serum Glucose 124 H 74-106 mg/dL Problem List SS COMPLEX HTN AFIB SSS S/P PPI DIABETES HYPOTHYROID NOW WITH CHAVEZ AND SOB MILD ELEVATION OF BNP Assessment/Plan DIURESIS CXR PULMONARY INTERSTITIAL INFILTRATE CXR REPEAT ABG ABX SPUTUM CX Plan discussed with: Patient ALEJANDRINA FELIX MD Jul 02, 2024 09:22
[2024-07-02 09:47] LABS: Rapid Influenza A Negative (Negative); Rapid Influenza B Negative (Negative)
[2024-07-02 10:27] LABS: Triglycerides 119 mg/dL (< 150)
[2024-07-02 10:28] LABS: LDL Cholesterol 76 mg/dL (< 100)
[2024-07-02 10:29] LABS: Cholesterol 132 mg/dL (< 200); HDL Cholesterol 41 mg/dL (40-59)
[2024-07-02] MEDS: FUROSEMIDE 40 MG/4 ML VIAL IV SCH (11:00)
[2024-07-02] MEDS ORDERED: LISINOPRIL 20 MG TAB PO SCH (11:17)
[2024-07-02] MEDS: ACCU-CHEK COMFORT CURVE STRIP VI SCH (11:17)
[2024-07-02] MEDS: InsuLIN REG 1unit/0.01ml Soln (100units/ml) SC SCH (11:23)
[2024-07-02 13:15] LABS: COVID19 ANTIGEN SOFIA FIA NEGATIVE (NEGATIVE)
[2024-07-02] MEDS ORDERED: hydroCHLOROthiazide 25 MG TAB PO SCH (18:00)
[2024-07-02] MEDS: PREGABALIN 25 MG CAP PO SCH (21:50)
[2024-07-02] MEDS: ATORVASTATIN 20 MG TAB PO SCH (21:50)
[2024-07-02] MEDS: DOCUSATE SOD 100 MG CAP PO SCH (21:50)
[2024-07-02] MEDS ORDERED: ATORVASTATIN 20 MG TAB PO SCH (22:00)
[2024-07-02] MEDS: EZETIMIBE 10 MG TAB PO SCH (23:00)
[2024-07-02] MEDS: METOPROLOL SUCCINATE XL 50 MG TAB PO SCH (23:04)
[2024-07-03] VITALS (9 sets, daily range): BP systolic 130–155; BP diastolic 59–71; PULSE 77–88; RESP 17–20; TEMP 97.6–98.2; O2SAT 92–100
[2024-07-03] MEDS ORDERED: LEVOTHYROXINE SODIUM 50 MCG TAB PO SCH (07:00)
[2024-07-03] MEDS ORDERED: SERT-160 PO (07:31)
[2024-07-03] MEDS ORDERED: EZET-10 PO (07:31)
[2024-07-03 07:56] LABS: Basophils # (auto) 0 10 ^3/uL (0-0.2); Basophils % (auto) 0.4 % (0.0-2.0); Eosinophils # (auto) 0.2 10 ^3/uL (0-0.8); Eosinophils % (auto) 4.1 % (0.0-7.0); Hematocrit 34.3 % (36.0-46.0); Hemoglobin 11.8 g/dL (12.2-16.2); Lymphocytes # (auto) 0.9 10 ^3/uL (0.4-5.4); Lymphocytes % (auto) 19.6 % (10.0-50.0); Mean Corpuscular Hemoglobin 32.5 pg (28.0-32.0); Mean Corpuscular Hgb Conc. 34.3 g/dL (32.0-36.0); Mean Corpuscular Volume 94.7 fL (80.0-100.0); Monocytes # (auto) 0.5 10 ^3/uL (0-1.3); Monocytes % (auto) 10.5 % (0.0-12.0); Neutrophils # (auto) 2.9 10 ^3/uL (1.6-8.6); Neutrophils % (auto) 65.4 % (37.0-80.0); Platelet Count (auto) 126 10^3/uL (140-450); Red Blood Cells 3.63 10^6/uL (4.0-5.20); Red Cell Distribution Width 14.2 % (11.8-14.3); White Blood Cell 4.5 10^3/uL (4.4-10.8)
[2024-07-03 08:19] LABS: Anion Gap 10 (5-15); Carbon Dioxide 26 mmol/L (20-31); Chloride 105 mmol/L (98-107); Potassium 3.9 mmol/L (3.5-5.1); Sodium 141 mmol/L (136-145)
[2024-07-03 08:22] LABS: Calcium 10.4 mg/dL (8.7-10.4)
[2024-07-03 08:25] LABS: Glucose 105 mg/dL (74-106)
[2024-07-03 08:26] LABS: BUN/Creatinine Ratio 15.2 (10.0-20.0); Blood Urea Nitrogen 14 mg/dL (9-23); Magnesium 2.1 mg/dL (1.6-2.6)
[2024-07-03 09:04] LABS: Benzodiazephine Screen, Urine Neg (NEGATIVE)
[2024-07-03 09:05] LABS: Amphetamine Screen, Urine Neg (NEGATIVE); Barbiturate Scree,Urine Neg (NEGATIVE); Cannabinoid Screen, Urine Neg (NEGATIVE); Cocaine Screen, Urine Neg (NEGATIVE); Opiate Scree,Urine Neg (NEGATIVE); Phencyclidine Screen, Urine Neg (NEGATIVE)
[2024-07-03] MEDS: SERTRALINE HCL 50 MG TAB PO SCH (09:12)
[2024-07-03] MEDS ORDERED: ASPirin 325 MG TAB PO SCH (10:00)
[2024-07-03] MEDS ORDERED: EZETIMIBE 10 MG TAB PO SCH (10:00)
[2024-07-03] MEDS ORDERED: [UNRECOGNIZED DRUG - REMARK] PO SCH (10:00)
[2024-07-03] MEDS ORDERED: METOPROLOL SUCCINATE XL 50 MG TAB PO SCH (10:00)
[2024-07-03] MEDS ORDERED: POTASSIUM CHL 10 Meq TABLET PO SCH (10:00)
--- NOTE | 2024-07-03 11:59 | DVHPN2 ---
Reviewed: Care Plan, H&P, Labs, Medications, Previous Orders, Radiology Changes from previous H/P or p: No Changes Cardiovascular: Palpitations Respiratory: Shortness of breath Objective Vitals Vital Signs Date Time Temp Pulse Resp B/P (MAP) Pulse Ox O2 Delivery O2 Flow Rate FiO2 07/03/24 09:13 136/71 07/03/24 09:00 97.6 80 20 100 97.6 07/02/24 20:00 Room Air* 0 21 Intake/Output Intake and Output 07/03/24 07:00 Intake Total 450 ml Balance 450 ml Intake Oral 400 ml IV Total 50 ml # Voids 1 Medications Current Medications Medications Dose Ordered Sig/Jw Route Start Time Stop Time Status Last Admin Dose Admin Aspirin 81 mg DAILY PO 07/02/24 10:00 07/03/24 09:12 81 MG Morphine Sulfate 2 mg Q30MP PRN IV 07/02/24 07:45 Acetaminophen 650 mg Q6HP PRN PO 07/02/24 07:45 Nitroglycerin 0.4 mg Q5MINP PRN SL 07/02/24 07:45 Ondansetron HCl 4 mg Q4HP PRN IV 07/02/24 07:45 Diagnostic Test (Pha) 1 strip ACHS 07/02/24 11:30 07/03/24 11:35 1 STRIP Insulin Human Regular ACHS SC 07/02/24 11:30 Dextrose 50 ml UD PRN IV 07/02/24 07:45 Ceftriaxone Sodium 50 ml @ 100 mls/hr DAILY@09 IV 07/02/24 08:00 07/03/24 09:14 100 MLS/HR Enoxaparin Sodium 30 mg DAILY SC 07/02/24 10:00 07/03/24 09:14 30 MG Docusate Sodium 100 mg BID PO 07/02/24 22:00 07/02/24 21:50 100 MG Lisinopril 20 mg BID PO 07/02/24 11:17 Hold Potassium Chloride 10 meq DAILY PO 07/03/24 10:00 Hold Aspirin 325 mg DAILY PO 07/03/24 10:00 Hold Patient Own Medication 1 tab DAILY PO 07/03/24 10:00 Hold Hydrochlorothiazide 12.5 mg BIDD PO 07/02/24 18:00 Hold Levothyroxine Sodium 150 mcg QAM PO 07/03/24 07:00 Hold Pregabalin 50 mg HS PO 07/02/24 22:00 07/02/24 21:50 50 MG Sertraline HCl 100 mg DAILY PO 07/03/24 10:00 07/03/24 09:12 100 MG Atorvastatin Calcium 10 mg HS PO 07/02/24 22:00 07/02/24 21:50 10 MG Furosemide 40 mg DAILY IV 07/02/24 11:00 07/03/24 09:13 40 MG EZETIMIBE 10 mg DAILY@2200 PO 07/03/24 22:00 Metoprolol Succinate 100 mg DAILY@2200 PO 07/03/24 22:00 Laboratory Results Laboratory Tests 07/03/24 06:30 Chemistry Test 07/03/24 06:30 Calcium Level 10.4 mg/dL (8.7-10.4) Magnesium Level 2.1 mg/dL (1.6-2.6) Labs and/or images reviewed: Labs reviewed by me, Image(s) reviewed by me Assessment/Plan Assessment/Plan Sick sinus syndrome status post PPI Hypertension AFib Status post PPI Diabetes Possible congestive heart failure: Lasix: Echocardiogram pending Hypothyroidism Possible community-acquired pneumonia: Rocephin Patient's granddaughter at bedside PCP Dr. Murray Plan discussed with: Patient Date of Service: Jul 03, 2024 Billing Provider: MARSHA SNOWDEN MD Common Visit Codes: [id number] INP/OBS CARE(HIGH) MARSHA SNOWDEN MD Jul 03, 2024 11:59
[2024-07-03] MEDS: EZETIMIBE 10 MG TAB PO SCH (22:18)
[2024-07-03] MEDS: METOPROLOL SUCCINATE XL 50 MG TAB PO SCH (22:18)
[2024-07-04] VITALS (8 sets, daily range): BP systolic 118–158; BP diastolic 49–68; PULSE 80–88; RESP 17–20; TEMP 97.3–98.6; O2SAT 90–94
--- NOTE | 2024-07-04 08:27 | DVHPN2 ---
Reviewed: Care Plan, H&P, Labs, Medications, Previous Orders, Radiology Changes from previous H/P or p: No Changes Cardiovascular: Palpitations Respiratory: Shortness of breath Objective Vitals Vital Signs Date Time Temp Pulse Resp B/P (MAP) Pulse Ox O2 Delivery O2 Flow Rate FiO2 07/04/24 01:00 97.5 84 18 158/61 (93) 92 97.5 07/03/24 19:30 Room Air* 0 21 Intake/Output Intake and Output 07/04/24 07:00 Intake Total 690 ml Balance 690 ml Intake Oral 640 ml IV Total 50 ml # Voids 6 # Bowel Movements 1 Medications Current Medications Medications Dose Ordered Sig/Jw Route Start Time Stop Time Status Last Admin Dose Admin Aspirin 81 mg DAILY PO 07/02/24 10:00 07/03/24 09:12 81 MG Morphine Sulfate 2 mg Q30MP PRN IV 07/02/24 07:45 Acetaminophen 650 mg Q6HP PRN PO 07/02/24 07:45 Nitroglycerin 0.4 mg Q5MINP PRN SL 07/02/24 07:45 Ondansetron HCl 4 mg Q4HP PRN IV 07/02/24 07:45 Diagnostic Test (Pha) 1 strip ACHS 07/02/24 11:30 07/04/24 06:56 1 STRIP Insulin Human Regular ACHS SC 07/02/24 11:30 Dextrose 50 ml UD PRN IV 07/02/24 07:45 Ceftriaxone Sodium 50 ml @ 100 mls/hr DAILY@09 IV 07/02/24 08:00 07/03/24 09:14 100 MLS/HR Enoxaparin Sodium 30 mg DAILY SC 07/02/24 10:00 07/03/24 09:14 30 MG Docusate Sodium 100 mg BID PO 07/02/24 22:00 07/02/24 21:50 100 MG Lisinopril 20 mg BID PO 07/02/24 11:17 Hold Potassium Chloride 10 meq DAILY PO 07/03/24 10:00 Hold Aspirin 325 mg DAILY PO 07/03/24 10:00 Hold Patient Own Medication 1 tab DAILY PO 07/03/24 10:00 Hold Hydrochlorothiazide 12.5 mg BIDD PO 07/02/24 18:00 Hold Levothyroxine Sodium 150 mcg QAM PO 07/03/24 07:00 Hold Pregabalin 50 mg HS PO 07/02/24 22:00 07/03/24 22:18 50 MG Sertraline HCl 100 mg DAILY PO 07/03/24 10:00 07/03/24 09:12 100 MG Atorvastatin Calcium 10 mg HS PO 07/02/24 22:00 07/03/24 22:18 10 MG Furosemide 40 mg DAILY IV 07/02/24 11:00 07/03/24 09:13 40 MG EZETIMIBE 10 mg DAILY@2200 PO 07/03/24 22:00 07/03/24 22:18 10 MG Metoprolol Succinate 100 mg DAILY@2200 PO 07/03/24 22:00 07/03/24 22:18 100 MG Laboratory Results Laboratory Tests 07/03/24 06:30 Labs and/or images reviewed: Labs reviewed by me, Image(s) reviewed by me Assessment/Plan Assessment/Plan Sick sinus syndrome status post PPI Hypertension AFib Diabetes : Insulin sliding scale Possible congestive heart failure: Lasix: Echocardiogram result pending Hypothyroidism Possible community-acquired pneumonia: Rocephin Patient's granddaughter at bedside PCP Dr. Murray Plan discussed with: Patient Date of Service: Jul 04, 2024 Billing Provider: MARSHA SNOWDEN MD Common Visit Codes: [id number] INP/OBS CARE(HIGH) MARSHA SNOWDEN MD Jul 04, 2024 08:27
[2024-07-04] MEDS: ACETAMINOPHEN 325 MG TAB PO PRN (10:37)
[2024-07-05] VITALS (7 sets, daily range): BP systolic 119–148; BP diastolic 51–97; PULSE 56–94; RESP 16–32; TEMP 97.4–100.4; O2SAT 91–100
--- NOTE | 2024-07-05 08:42 | DVHPN2 ---
Progress Note - Dictate Date Seen: Jul 03, 2024 Medical Necessity Reason Pt with a Central, PICC or Fol: No Subjective PT WITH SS COMPLEX HTN AFIB SSS S/P PPI DIABETES HYPOTHYROID NOW WITH CHAVEZ AND SOB MILD ELEVATION OF BNP vital signs Vital Sign Date Time Temp Pulse Resp B/P (MAP) Pulse Ox O2 Delivery O2 Flow Rate FiO2 07/05/24 05:00 97.4 79 18 143/62 (89) 94 97.4 07/04/24 19:30 Room Air* 0 21 Total Intake and Output 07/04/24 07/04/24 07/05/24 15:00 23:00 07:00 Intake Total 50 ml 595 ml 700 ml Balance 50 ml 595 ml 700 ml medications Current Medications Medications Dose Ordered Sig/Jw Route Start Time Stop Time Status Last Admin Dose Admin Aspirin 81 mg DAILY PO 07/02/24 10:00 07/04/24 10:20 81 MG Morphine Sulfate 2 mg Q30MP PRN IV 07/02/24 07:45 Acetaminophen 650 mg Q6HP PRN PO 07/02/24 07:45 07/04/24 19:49 650 MG Nitroglycerin 0.4 mg Q5MINP PRN SL 07/02/24 07:45 Ondansetron HCl 4 mg Q4HP PRN IV 07/02/24 07:45 Diagnostic Test (Pha) 1 strip ACHS 07/02/24 11:30 07/05/24 06:01 1 STRIP Insulin Human Regular ACHS SC 07/02/24 11:30 Dextrose 50 ml UD PRN IV 07/02/24 07:45 Ceftriaxone Sodium 50 ml @ 100 mls/hr DAILY@09 IV 07/02/24 08:00 07/04/24 10:24 100 MLS/HR Enoxaparin Sodium 30 mg DAILY SC 07/02/24 10:00 07/04/24 10:20 30 MG Docusate Sodium 100 mg BID PO 07/02/24 22:00 07/04/24 10:20 100 MG Lisinopril 20 mg BID PO 07/02/24 11:17 Hold Potassium Chloride 10 meq DAILY PO 07/03/24 10:00 Hold Aspirin 325 mg DAILY PO 07/03/24 10:00 Hold Patient Own Medication 1 tab DAILY PO 07/03/24 10:00 Hold Hydrochlorothiazide 12.5 mg BIDD PO 07/02/24 18:00 Hold Levothyroxine Sodium 150 mcg QAM PO 07/03/24 07:00 Hold Pregabalin 50 mg HS PO 07/02/24 22:00 07/04/24 21:40 50 MG Sertraline HCl 100 mg DAILY PO 07/03/24 10:00 07/04/24 10:20 100 MG Atorvastatin Calcium 10 mg HS PO 07/02/24 22:00 07/04/24 21:40 10 MG Furosemide 40 mg DAILY IV 07/02/24 11:00 07/04/24 10:21 40 MG EZETIMIBE 10 mg DAILY@2200 PO 07/03/24 22:00 07/04/24 21:40 10 MG Metoprolol Succinate 100 mg DAILY@2200 PO 07/03/24 22:00 07/04/24 21:39 100 MG laboratory and microbiology Laboratory Tests 07/03/24 06:30 Test 07/03/24 06:30 Range/Units Serum Glucose 105 74-106 mg/dL Problem List SS COMPLEX HTN AFIB SSS S/P PPI DIABETES HYPOTHYROID NOW WITH CHAVEZ AND SOB MILD ELEVATION OF BNP Assessment/Plan DIURESIS CXR PULMONARY INTERSTITIAL INFILTRATE CXR REPEAT ABG ABX SPUTUM CX Plan discussed with: Patient ALEJANDRINA FELIX MD Jul 05, 2024 08:42
--- NOTE | 2024-07-05 10:54 | DVHPN2 ---
Progress Note Date Seen: Jul 05, 2024 Medical Necessity Reason Pt with a Central, PICC or Fol: No Subjective Patient reports: No new complaints Review of Systems: HEENT:Normal, CVS:Normal, RESPIRATORY:Normal, GI:Normal, :Normal, MSK:Normal, NEURO:Normal Objective vital signs Vital Sign Date Time Temp Pulse Resp B/P (MAP) Pulse Ox O2 Delivery O2 Flow Rate FiO2 07/05/24 10:18 138/58 07/05/24 09:00 97.7 88 16 94 97.7 07/04/24 19:30 Room Air* 0 21 Total Intake and Output 07/04/24 07/04/24 07/05/24 15:00 23:00 07:00 Intake Total 50 ml 595 ml 700 ml Balance 50 ml 595 ml 700 ml medications Current Medications Medications Dose Ordered Sig/Jw Route Start Time Stop Time Status Last Admin Dose Admin Aspirin 81 mg DAILY PO 07/02/24 10:00 07/05/24 10:18 81 MG Morphine Sulfate 2 mg Q30MP PRN IV 07/02/24 07:45 Acetaminophen 650 mg Q6HP PRN PO 07/02/24 07:45 07/04/24 19:49 650 MG Nitroglycerin 0.4 mg Q5MINP PRN SL 07/02/24 07:45 Ondansetron HCl 4 mg Q4HP PRN IV 07/02/24 07:45 Diagnostic Test (Pha) 1 strip ACHS 07/02/24 11:30 07/05/24 06:01 1 STRIP Insulin Human Regular ACHS SC 07/02/24 11:30 Dextrose 50 ml UD PRN IV 07/02/24 07:45 Ceftriaxone Sodium 50 ml @ 100 mls/hr DAILY@09 IV 07/02/24 08:00 07/05/24 10:17 100 MLS/HR Enoxaparin Sodium 30 mg DAILY SC 07/02/24 10:00 07/05/24 10:18 30 MG Docusate Sodium 100 mg BID PO 07/02/24 22:00 07/05/24 10:18 100 MG Lisinopril 20 mg BID PO 07/02/24 11:17 Hold Potassium Chloride 10 meq DAILY PO 07/03/24 10:00 Hold Aspirin 325 mg DAILY PO 07/03/24 10:00 Hold Patient Own Medication 1 tab DAILY PO 07/03/24 10:00 Hold Hydrochlorothiazide 12.5 mg BIDD PO 07/02/24 18:00 Hold Levothyroxine Sodium 150 mcg QAM PO 07/03/24 07:00 Hold Pregabalin 50 mg HS PO 07/02/24 22:00 07/04/24 21:40 50 MG Sertraline HCl 100 mg DAILY PO 07/03/24 10:00 07/05/24 10:18 100 MG Atorvastatin Calcium 10 mg HS PO 07/02/24 22:00 07/04/24 21:40 10 MG Furosemide 40 mg DAILY IV 07/02/24 11:00 07/05/24 10:18 40 MG EZETIMIBE 10 mg DAILY@2200 PO 07/03/24 22:00 07/04/24 21:40 10 MG Metoprolol Succinate 100 mg DAILY@2200 PO 07/03/24 22:00 07/04/24 21:39 100 MG Examination: GENERAL:Normal, HEENT:Normal, NECK:Normal, LUNGS:Normal, LUNGS:Abnormal (left rales), CVS:Normal, ABDOMEN:Normal, MSK:Normal, SKIN:Normal, NEURO:Normal, :Normal laboratory and microbiology Laboratory Tests 07/03/24 06:30 Test 07/03/24 06:30 Range/Units Serum Glucose 105 74-106 mg/dL Problem List/Assessment/Plan Problem List/Assessment/Plan #1 acute on chronic systolic/diastolic heart failure: lasix iv #2 htn' #3 s/p pacer #4 obesity #5 hypothyroidism #6 hyperlipidemia #7 depression advance care planning- full code- time spent 18 mins Plan discussed with: Patient Date of Service: Jul 05, 2024 Billing Provider: DI BILLY MD Common Visit Codes: [id number] INP/OBS CARE(HIGH) Secondary Visit Codes: [id number] CARE PLAN 30 MINUTES DI BILLY MD Jul 05, 2024 10:54
[2024-07-05] MEDS: POTASSIUM CHL 10 Meq TABLET PO ONE (11:28)
[2024-07-05] MEDS: LEVOTHYROXINE SODIUM 112 MCG TAB PO ONE (11:28)
[2024-07-05] MEDS: LISINOPRIL 5 MG TAB PO ONE (11:33)
--- NOTE | 2024-07-05 16:38 | DVHSR ---
APPROVED REPORT EXAM: Two-dimensional and M-mode echocardiogram with Doppler and color Doppler. Blood Pressure: 136/71 mmHg INDICATION Chest Pain Surgery/Intervention Pacemaker: RISK [employer]ORS Height: 5' 1", Weight: 166 DIMENSIONS LVDd5.8 (3.8-5.7cm)LA (2D)4.3 (1.9-4.0cm)Aortic Root3.2 (2.0-3.7cm) LVDs5.0 (2.5-4.0cm)LA (MM) (1.9-4.0cm)Aortic Cusp Exc1.7 (1.5-2.0cm) EF (%) 30.0 (55-70%)Rt. Atrium3.2 (1.9-4.0cm)Asc. Aorta cm IVSd1.2 (0.7-1.1cm)RV (D) (1.8-2.4cm) PWd1.2 (0.7-1.1cm) Mitral Valve MitralMitral Stenosis E wave1.50m/sMV Mean GR.mmHg A wave0.90m/sMV Peak GR.mmHg E/A ratio1.72D MVAcm2 Aortic Valve Aortic ValveAortic Stenosis V10.50m/Sarbjit Mean GR.3mmHg V21.10m/Sarbjit Peak GR.6mmHg LVOT Diameter2.2 (1.8-2.4cm)Doppler AVA1.73cm2 AI P 1/2 Qned929.62ms Tricuspid Valve TR Velocity2.70m/s [id number] Conclusion EF <30% LAE LVH
--- NOTE | 2024-07-05 17:03 | DVHPN2 ---
Progress Note - Dictate Date Seen: Jul 04, 2024 Medical Necessity Reason Pt with a Central, PICC or Fol: No Subjective PT WITH SS COMPLEX HTN AFIB SSS S/P PPI DIABETES HYPOTHYROID NOW WITH CHAVEZ AND SOB MILD ELEVATION OF BNP vital signs Vital Sign Date Time Temp Pulse Resp B/P (MAP) Pulse Ox O2 Delivery O2 Flow Rate FiO2 07/05/24 13:00 100.4 56 32 148/97 (114) 100 100.4 07/05/24 08:00 Room Air* 0 21 Total Intake and Output 07/04/24 07/04/24 07/05/24 15:00 23:00 07:00 Intake Total 50 ml 595 ml 700 ml Balance 50 ml 595 ml 700 ml medications Current Medications Medications Dose Ordered Sig/Jw Route Start Time Stop Time Status Last Admin Dose Admin Aspirin 81 mg DAILY PO 07/02/24 10:00 07/05/24 10:18 81 MG Morphine Sulfate 2 mg Q30MP PRN IV 07/02/24 07:45 Acetaminophen 650 mg Q6HP PRN PO 07/02/24 07:45 07/04/24 19:49 650 MG Nitroglycerin 0.4 mg Q5MINP PRN SL 07/02/24 07:45 Ondansetron HCl 4 mg Q4HP PRN IV 07/02/24 07:45 Ceftriaxone Sodium 50 ml @ 100 mls/hr DAILY@09 IV 07/02/24 08:00 07/05/24 10:17 100 MLS/HR Docusate Sodium 100 mg BID PO 07/02/24 22:00 07/05/24 10:18 100 MG Pregabalin 50 mg HS PO 07/02/24 22:00 07/04/24 21:40 50 MG Sertraline HCl 100 mg DAILY PO 07/03/24 10:00 07/05/24 10:18 100 MG Atorvastatin Calcium 10 mg HS PO 07/02/24 22:00 07/04/24 21:40 10 MG Furosemide 40 mg DAILY IV 07/02/24 11:00 07/05/24 10:18 40 MG EZETIMIBE 10 mg DAILY@2200 PO 07/03/24 22:00 07/04/24 21:40 10 MG Metoprolol Succinate 100 mg DAILY@2200 PO 07/03/24 22:00 07/04/24 21:39 100 MG Lisinopril 10 mg DAILY PO 07/06/24 10:00 Potassium Chloride 10 meq DAILY PO 07/06/24 10:00 Levothyroxine Sodium 112 mcg QAM@0600 PO 07/06/24 06:00 laboratory and microbiology Laboratory Tests 07/03/24 06:30 Test 07/03/24 06:30 Range/Units Serum Glucose 105 74-106 mg/dL Problem List SS COMPLEX HTN AFIB SSS S/P PPI DIABETES HYPOTHYROID NOW WITH CHAVEZ AND SOB MILD ELEVATION OF BNP Assessment/Plan DIURESIS CXR PULMONARY INTERSTITIAL INFILTRATE CXR REPEAT ABG ABX SPUTUM CX EF <30% Dietary Evaluation Review Comments: follow current 2 g NA Cardiac diet, consider adding CCHO-60 if her glucoes level increases. Monitor PO intake to meet 75% of her needs Expected Outcomes/Goals: gradual wt loss, controlled DM Plan discussed with: Patient ALEJANDRINA FELIX MD Jul 05, 2024 17:03
--- NOTE | 2024-07-05 17:41 | MEDREC ---
[facility] Intervention Section I [facility] Intervention: Review courses of therapy (PLEASE CONSIDER D/C ANTIBIOTIC IN ABSENCE OF BACTERIAL INFECTION ) DANTE MANRIQUEZ PHARMACIST Jul 05, 2024 17:41
[2024-07-06 00:48] VITALS: BP 117/48; PULSE 93; RESP 18; TEMP 97.5; O2SAT 93
[2024-07-06 05:00] VITALS: BP 129/64; PULSE 88; RESP 18; TEMP 97.3; O2SAT 92
[2024-07-06] MEDS: LEVOTHYROXINE SODIUM 112 MCG TAB PO SCH (05:49)
--- NOTE | 2024-07-06 07:04 | DVH ---
CHEST RADIOGRAPH Indication: chf Technique: Single frontal view of the chest was obtained Comparison: XY CHEST PORTABLE on DOS: 07/02/24 FINDINGS: Lines and Tubes: Dual-chamber pacemaker with right atrial and ventricular leads. Lungs: Pulmonary congestion. No focal consolidation. Pleura: No effusion. No pneumothorax. Cardiomediastinal contours: Unremarkable Bones: No acute osseous abnormality. Bilateral Glenohumeral joint arthrosis. IMPRESSION: 1. Pulmonary vascular congestion.
[2024-07-06 07:21] LABS: Basophils # (auto) 0 10 ^3/uL (0-0.2); Basophils % (auto) 0.4 % (0.0-2.0); Eosinophils # (auto) 0.3 10 ^3/uL (0-0.8); Eosinophils % (auto) 4.7 % (0.0-7.0); Hematocrit 38.7 % (36.0-46.0); Hemoglobin 12.9 g/dL (12.2-16.2); Lymphocytes # (auto) 0.9 10 ^3/uL (0.4-5.4); Lymphocytes % (auto) 16.2 % (10.0-50.0); Mean Corpuscular Hemoglobin 31.8 pg (28.0-32.0); Mean Corpuscular Hgb Conc. 33.5 g/dL (32.0-36.0); Monocytes # (auto) 0.7 10 ^3/uL (0-1.3); Monocytes % (auto) 12.6 % (0.0-12.0); Neutrophils # (auto) 3.7 10 ^3/uL (1.6-8.6); Neutrophils % (auto) 66.1 % (37.0-80.0); Nucleated Red Blood Cells % 0.1 %; Platelet Count (auto) 144 10^3/uL (140-450); Red Blood Cells 4.07 10^6/uL (4.0-5.20); Red Cell Distribution Width 14.7 % (11.8-14.3); White Blood Cell 5.6 10^3/uL (4.4-10.8)
[2024-07-06 07:34] LABS: Chloride 106 mmol/L (98-107); Potassium 3.6 mmol/L (3.5-5.1); Sodium 143 mmol/L (136-145)
[2024-07-06 07:35] LABS: Anion Gap 11 (5-15); Carbon Dioxide 26 mmol/L (20-31)
[2024-07-06 07:39] LABS: Calcium 10.5 mg/dL (8.7-10.4)
[2024-07-06 07:40] LABS: Blood Urea Nitrogen 26 mg/dL (9-23); Glucose 94 mg/dL (74-106)
[2024-07-06 07:41] LABS: Magnesium 2.2 mg/dL (1.6-2.6)
[2024-07-06 08:00] VITALS: PULSE 76; PULSE 88
[2024-07-06 09:00] VITALS: BP 138/59; PULSE 84; RESP 16; TEMP 97.6; O2SAT 92
[2024-07-06] MEDS: LISINOPRIL 5 MG TAB PO SCH (09:33)
[2024-07-06] MEDS: POTASSIUM CHL 10 Meq TABLET PO SCH (09:34)
--- NOTE | 2024-07-06 10:05 | DVHDS2 ---
Discharge Summary Date of Admission Jul 02, 2024 at 07:45 Date of Discharge: Jul 06, 2024 Labs/Diagnostic Data: Laboratory Results Test 07/06/24 05:30 07/05/24 11:23 07/03/24 00:00 07/02/24 10:30 White Blood Count 5.6 10^3/uL (4.4-10.8) Red Blood Count 4.07 10^6/uL (4.0-5.20) Hemoglobin 12.9 g/dL (12.2-16.2) Hematocrit 38.7 % (36.0-46.0) Mean Corpuscular Volume 95.0 fL (80.0-100.0) Mean Corpuscular Hemoglobin 31.8 pg (28.0-32.0) Mean Corpuscular Hemoglobin Concent 33.5 g/dL (32.0-36.0) Red Cell Distribution Width 14.7 % (11.8-14.3) Platelet Count 144 10^3/uL (140-450) Mean Platelet Volume 8.1 fL (6.9-10.8) Neutrophils (%) (Auto) 66.1 % (37.0-80.0) Lymphocytes (%) (Auto) 16.2 % (10.0-50.0) Monocytes (%) (Auto) 12.6 % (0.0-12.0) Eosinophils (%) (Auto) 4.7 % (0.0-7.0) Basophils (%) (Auto) 0.4 % (0.0-2.0) Neutrophils # (Auto) 3.7 10 ^3/uL (1.6-8.6) Lymphocytes # (Auto) 0.9 10 ^3/uL (0.4-5.4) Monocytes # (Auto) 0.7 10 ^3/uL (0-1.3) Eosinophils # (Auto) 0.3 10 ^3/uL (0-0.8) Basophils # (Auto) 0 10 ^3/uL (0-0.2) Nucleated Red Blood Cells 0.1 % Sodium Level 143 mmol/L (136-145) Potassium Level 3.6 mmol/L (3.5-5.1) Chloride Level 106 mmol/L (98-107) Carbon Dioxide Level 26 mmol/L (20-31) Anion Gap 11 (5-15) Blood Urea Nitrogen 26 mg/dL (9-23) Creatinine 1.18 mg/dL (0.550-1.02) Glomerular Filtration Rate Calc 45 mL/min (>90) BUN/Creatinine Ratio 22.0 (10.0-20.0) Serum Glucose 94 mg/dL (74-106) Calcium Level 10.5 mg/dL (8.7-10.4) Magnesium Level 2.2 mg/dL (1.6-2.6) POC Glucose 118 mg/dl (70-106) Urine Opiates Screen Neg (NEGATIVE) Urine Fentanyl Screen Neg (NEGATIVE) Urine Barbiturates Screen Neg (NEGATIVE) Urine Phencyclidine Screen Neg (NEGATIVE) Urine Amphetamines Screen Neg (NEGATIVE) Urine Benzodiazepines Screen Neg (NEGATIVE) Urine Cocaine Screen Neg (NEGATIVE) Urine Cannabinoids Screen Neg (NEGATIVE) Troponin I High Sensitivity 14 ng/L (</=34) Test 07/02/24 08:00 07/02/24 06:20 07/02/24 04:25 07/02/24 03:17 Influenza Type A Antigen Negative (Negative) Influenza Type B Antigen Negative (Negative) Thyroid Stimulating Hormone (TSH) 5.23 uIU/mL (0.55-4.78) Triglycerides Level 119 mg/dL (< 150) Cholesterol Level 132 mg/dL (< 200) LDL Cholesterol 76 mg/dL (< 100) HDL Cholesterol 41 mg/dL (40-59) Hemoglobin A1c 5.5 % A1C (<5.7) B-Type Natriuretic Peptide 446.88 pg/mL (0-100) Test 07/02/24 00:00 SARS-CoV-2 Antigen (Rapid) Negative (NEGATIVE) Other Laboratory Tests 07/06/24 05:30 Brief Hx & Hospital Course: see dictated note Condition at Discharge: Fair Final Diagnosis/Problems List chf Discharge Disposition: Home Discharge Instruct/Medications Diet: Cardiac 2g Na,low cholest Activity: No Restrictions, As Tolerated Follow Up/Referral: fu with dr Murray in 1 wk Medications: resume home meds script to pharmacy Discharge Statement: "Patient was advised to return to the ER or call 911 if any headaches, dizziness, shortness of breath, chest pain, abdominal pain, bleeding, fevers, or worsening of medical condition. Patient was counseled about treatment plan, medications, possible side effects, patientverbalized understanding. All questions were answered to the best of my ability. This discharge took greater then 30 minutes in planning, reviewing documentation, counseling the patient, and discussing with other team members." ASSESSMENT ASSESSMENT Assessment chf Date of Service: Jul 06, 2024 Billing Provider: DI BILLY MD Common Visit Codes: 76563-BNO/OBS DISCH DAY >30min DI BILLY MD Jul 06, 2024 10:05
[2024-07-06] MEDS ORDERED: FURO1TAB31 PO (10:07)
--- NOTE | 2024-07-06 10:21 | DVHDS ---
DATE OF DISCHARGE: 07/06/2024 HISTORY OF PRESENT ILLNESS: The patient is an 84-year-old lady who came in with complaints of increasing shortness of breath and lower extremity swelling. The patient has history of hypertension, diabetes, atrial fibrillation, hypothyroidism, pacemaker and hyperlipidemia. HOSPITAL COURSE: The patient was noted to be in congestive heart failure. She was seen in Cardiology consult by Dr. Murray. Echocardiogram done showed ejection fraction of less than 30%. The patient was placed on Lasix. She is now improved in her symptoms. She wishes to go home. She will be discharged home to resume her home medications as well as to be on Lasix 40 mg daily. I have discussed this plan of care with her argon tester, Dr. Murray who will follow up in 1 week. FINAL DIAGNOSES: Therefore, * Acute on chronic systolic heart failure. * Hypertension. * History of pacemaker. * Obesity. * Hypothyroidism. * Hyperlipidemia. * Depression. Time spent in discharge planning and review of plan with the patient and field consultant and nursing was 38 minutes. MD ROBINA Grubbs/TA TID: [id number] RECEIPT: [id number]
[2024-07-06 11:57] VITALS: BP 138/59; PULSE 80; RESP 16; TEMP 97.6; O2SAT 92
[2024-07-06 13:00] VITALS: BP 114/54; PULSE 78; RESP 16; TEMP 97.5; O2SAT 93
--- NOTE | 2024-07-13 11:39 | DVHPN2 ---
Progress Note - Dictate Date Seen: Jul 06, 2024 Medical Necessity Reason Pt with a Central, PICC or Fol: No Subjective PT WITH SS COMPLEX HTN AFIB SSS S/P PPI DIABETES HYPOTHYROID NOW WITH CHAVEZ AND SOB MILD ELEVATION OF BNP laboratory and microbiology Laboratory Tests 07/06/24 05:30 Test 07/06/24 05:30 Range/Units Serum Glucose 94 74-106 mg/dL Problem List SS COMPLEX HTN AFIB SSS S/P PPI DIABETES HYPOTHYROID NOW WITH CHAVEZ AND SOB MILD ELEVATION OF BNP Assessment/Plan DIURESIS CXR PULMONARY INTERSTITIAL INFILTRATE CXR REPEAT ABG ABX SPUTUM CX EF <30% Dietary Evaluation Review Comments: follow current 2 g NA Cardiac diet, consider adding CCHO-60 if her glucoes level increases. Monitor PO intake to meet 75% of her needs Expected Outcomes/Goals: gradual wt loss, controlled DM Plan discussed with: Patient ALEJANDRINA FELIX MD Jul 13, 2024 11:39
== END 2024-07-06 13:44 | disposition home or self-care (01) | DRG 291 ==
LOC: ER 02:08 → OVERFLOW 07:45 → TELE-CENTR 15:53
PROVIDERS: ADMIT Internal Medicine; ATTEND Internal Medicine
DX: I11.0 Hypertensive heart disease with heart failure (principal); I50.23 Acute on chronic systolic (congestive) heart failure; I48.91 Unspecified atrial fibrillation; I49.5 Sick sinus syndrome; Z20.822 Contact with and (suspected) exposure to COVID-19; E78.5 Hyperlipidemia, unspecified; E03.9 Hypothyroidism, unspecified; F32.A Depression, unspecified; Z96.652 Presence of left artificial knee joint; E66.9 Obesity, unspecified; D64.9 Anemia, unspecified; E11.9 Type 2 diabetes mellitus without complications; Z95.0 Presence of cardiac pacemaker; Z90.710 Acquired absence of both cervix and uterus; Z88.5 Allergy status to narcotic agent; Z88.1 Allergy status to other antibiotic agents; Z86.16 Personal history of COVID-19; Z79.899 Other long term (current) drug therapy; Z90.49 Acquired absence of other specified parts of digestive tract; Z88.8 Allergy status to other drugs, medicaments and biological substances; Z68.30 Body mass index [BMI] 30.0-30.9, adult
CPT/HCPCS: 36415; 71045; 80048; 80061; 80307; 82962; 83036; 83735; 83880; 84443; 84484; 85025; 87426; 87804; 93306; 97110; 97116; 97163; 97530; 99291; G0378

== ENCOUNTER → 2024-08-11 | Outpatient (CLI) | payer MEDICARE, OTHER ==
[~2024-08-11] MED LIST changes: +ACET-1080 PO; +ASCO500T11 PO; +ASPI1TAB19 PO; -ASPI325T6 PO; +B-CO1CAP18 PO; +CHOL500033 PO; +FURO1TAB31 PO; +HEPARIN IN NS 1000Units/500mL 1,500 ML ONE; -HYDR12.55 PO; +IOHEXOL 350 MG/ML 100ML IJ ONE; +LEVO112T32 PO; -LEVO150T10 PO; +MULT1TAB65 PO; +OMEP1CAP70 PO; -POTA-211 PO; +TURM500C3 PO; +ZINC50TA7 PO
[2024-08-11 09:10] VITALS: BP 127/59; PULSE 75; RESP 16; O2SAT 94
[2024-08-11 09:26] VITALS: BP 121/71; PULSE 76; RESP 16; O2SAT 94
--- NOTE | 2024-08-11 12:48 | DVH ---
EXAM: XY CHEST TWO VIEWS ROUTINE CLINICAL HISTORY: Pain COMPARISON: None TECHNIQUE: Frontal and lateral view of the chest was obtained FINDINGS: Lines and Tubes: Cardiac pacemaker projects over left chest wall. Lungs: No focal consolidation. Pleura: No effusion. No pneumothorax. Cardiomediastinal contours: Unremarkable Bones: No acute osseous abnormality. IMPRESSION: No acute cardiopulmonary disease.
== END | disposition home or self-care (01) ==
LOC: Rad HDHVI 09:02
PROVIDERS: ATTEND Internal Medicine Cardiovascular Disease
DX: Z01.818 Encounter for other preprocedural examination (principal); I44.7 Left bundle-branch block, unspecified; R94.31 Abnormal electrocardiogram [ECG] [EKG]; I50.33 Acute on chronic diastolic (congestive) heart failure
CPT/HCPCS: 71046; 93005; G0463

== ENCOUNTER 2024-08-12 07:17 | Day surgery (SDC) | payer MEDICARE, OTHER ==
[2024-08-11 11:46] LABS: Basophils # (auto) 0 10 ^3/uL (0-0.2); Basophils % (auto) 0.3 % (0.0-2.0); Eosinophils # (auto) 0.2 10 ^3/uL (0-0.8); Eosinophils % (auto) 3.5 % (0.0-7.0); Hematocrit 38.9 % (36.0-46.0); Hemoglobin 13.2 g/dL (12.2-16.2); Lymphocytes # (auto) 1.1 10 ^3/uL (0.4-5.4); Lymphocytes % (auto) 17.1 % (10.0-50.0); Mean Corpuscular Hemoglobin 31.7 pg (28.0-32.0); Mean Corpuscular Volume 93.2 fL (80.0-100.0); Monocytes # (auto) 0.6 10 ^3/uL (0-1.3); Monocytes % (auto) 9.6 % (0.0-12.0); Neutrophils # (auto) 4.4 10 ^3/uL (1.6-8.6); Neutrophils % (auto) 69.5 % (37.0-80.0); Platelet Count (auto) 185 10^3/uL (140-450); Red Blood Cells 4.17 10^6/uL (4.0-5.20); Red Cell Distribution Width 14.2 % (11.8-14.3); White Blood Cell 6.3 10^3/uL (4.4-10.8)
[2024-08-11 11:55] LABS: Potassium 3.5 mmol/L (3.5-5.1)
[2024-08-11 11:56] LABS: Anion Gap 9 (5-15); Carbon Dioxide 30 mmol/L (20-31)
[2024-08-11 11:57] LABS: INR 0.97 (0.9-1.15); Partial Thromboplastin Time 25.7 SEC (24.5-34.5); Prothrombin Time 10.3 sec (9.3-11.8)
[2024-08-11 12:02] LABS: BUN/Creatinine Ratio 18.8 (10.0-20.0); Blood Urea Nitrogen 19 mg/dL (9-23); Glucose 102 mg/dL (74-106)
[2024-08-11 12:15] LABS: Calcium 10.8 mg/dL (8.7-10.4); Chloride 107 mmol/L (98-107); Sodium 146 mmol/L (136-145)
[~2024-08-12] VITALS: Ht 154.9 cm; Wt 68.0 kg
[2024-08-12] VITALS (7 sets, daily range): BP systolic 119–159; BP diastolic 57–71; PULSE 73–89; RESP 12–20; O2SAT 90–97
[~2024-08-12 07:17] MED LIST changes: -HEPARIN IN NS 1000Units/500mL 1,500 ML ONE; -IOHEXOL 350 MG/ML 100ML IJ ONE
[2024-08-12] MEDS ORDERED: fentaNYL CITRATE 100 MCG/2 ML VL ONE (10:27)
[2024-08-12] MEDS ORDERED: LIDOCAINE 2%HCL (LOCAL ANESTH.) INJ 20ML MDV ONE (10:27)
[2024-08-12] MEDS ORDERED: SODIUM CHL 0.9% 0 ML ONE (10:27)
[2024-08-12] MEDS ORDERED: ANGIOMAX 250 MG VIAL IV ONE (10:27)
[2024-08-12] MEDS ORDERED: MIDAZOLAM HCL 2MG/2ML 2ml VIAL (1mg/ml) ONE (10:27)
--- NOTE | 2024-08-12 11:19 | DVHOP ---
DATE OF SURGERY: 08/12/2024 PROCEDURES PERFORMED: * Left heart catheterization. * Coronary angiography. * Ventriculogram. * Conscious sedation. DESCRIPTION OF PROCEDURE: The patient was prepped and draped in sterile condition. 1% Xylocaine used to anesthetize the right groin. Using Cook needle, right femoral artery was engaged with a Seldinger technique. A 6-Djiboutian sheath in the right femoral artery. Using 6-D[place]ib[place]ian JL4 catheter and 6-[place]ib[place] JR4 catheter, selective left and right coronary angiography was performed. Using a 6-Djiboutian pigtail catheter ventriculogram was done. Total contrast use was 60 mL of . Total fluoroscopy was 1 minute. RESULTS: * Left main patent. * Left anterior descending artery small caliber vessel, but no flow restrictive lesion. * Right coronary artery codominant system without any flow restrictive lesion. Right coronary artery has a very inferior takeoff of the coronary ostium. However, no flow restrictive lesion. * Left ventricular function shows global hypokinesis with an estimated EF of around 25% with an LVEDP of 15-16 mmHg, with no gradient across the aortic valve and left ventricular systolic pressure of 145. CONCLUSION: The patient with dilated cardiomyopathy, most likely secondary to RV pacing. Coronary anatomy is within normal limits. Trevor Garcia MD SA/VANDANA/JACLYN TID: [id number] RECEIPT: [id number]
--- NOTE | 2024-08-12 11:54 | DVHDS ---
DATE OF DISCHARGE: 08/12/2024 DISCHARGE DIAGNOSES: * Systolic heart failure, acute and chronic. * Normal coronary anatomy. * The patient with sick sinus syndrome, RV paced, and I believe that is what is causing the patient to have left ventricular dysfunction. At this time, the patient will be medically managed. I will consult with the patient and consider for Bi-V upgrade. We will continue to follow. The patient stable at the time of discharge. DISPOSITION: Home. ACTIVITY: As instructed. DIET: 2 g sodium diet. Trevor Garcia MD SA/VANDANA/KELLIE TID: [id number] RECEIPT: [id number]
--- NOTE | 2024-08-12 12:26 | DVHHP ---
ADMIT DATE: 08/12/2024 HISTORY OF PRESENT ILLNESS: The patient is 84 years old who has been having symptoms of congestive heart failure. It appears as though the patient's symptoms are related to diminished left ventricular ejection fraction. Echocardiogram shows an EF of less than 30%. This is a new onset. The patient has sick sinus syndrome. She is RV paced consistently and I believe it is the pacing that has caused her to diminish left ventricular ejection fraction. She may need an upgrade to a Bi-V. Risks and benefits were explained to the patient. The patient understands and agrees. PERTINENT MEDICAL HISTORY: Significant for: * Hypertension. * History of congestive heart failure, diabetes, diabetic neuropathy. * No history of renal insufficiency. * History of congestive heart failure. * In the meantime, the patient had a permanent pacemaker implanted since 2014. MEDICATIONS: Currently, the patient is on Zetia, simvastatin, aspirin, metoprolol. ALLERGIES: FENTANYL. SOCIAL HISTORY: Denies any history of tobacco use. No history of alcohol use or drug use. FAMILY HISTORY: Negative. REVIEW OF SYSTEMS: She denies any fever, chills, melena or hematochezia. No hematemesis or hemoptysis. No hematochezia. Denies any history of PND, orthopnea at this time, although she was recently admitted for acute decompensation. She denies any history of CVA. No history of seizure disorder. No history of mixed connective tissue disease such as rheumatoid arthritis or lupus. No history of any constrictive or obstructive cardiomyopathy. Denies any recent travel. Denies any bleeding diathesis. PHYSICAL EXAMINATION: VITAL SIGNS: Blood pressure is 134/82, pulse 70, O2 saturation 94% on room air. HEENT: Pupils are reactive. Funduscopic exam shows no AV nicking. No exudates. No papilledema. Sclerae anicteric. Oral mucosa moist. Posterior pharynx without any exudate. NECK: No JVD appreciated. Carotid pulses are 2+ and symmetrical. Normal upstroke and contour. ABDOMEN: Soft, nontender. Normal bowel sounds. SKIN: Unremarkable. EXTREMITIES: 1+ edema. ASSESSMENT AND PLAN: Thus, the patient with systolic heart failure, diminished left ventricular ejection fraction. The patient is now to undergo left heart catheterization to rule out coronary artery disease. If the patient's coronary anatomy is within normal and if that is the pacemaker-mediated cardiomyopathy, the patient may require Bi-V pacing. Trevor Garcia MD SA/DECLAN/KELLIE TID: [id number] RECEIPT: [id number]
== END 2024-08-12 13:27 | disposition home or self-care (01) ==
LOC: CATH 07:17
PROVIDERS: ATTEND Internal Medicine Cardiovascular Disease
DX: I11.0 Hypertensive heart disease with heart failure (principal); I50.20 Unspecified systolic (congestive) heart failure; I42.0 Dilated cardiomyopathy; E11.40 Type 2 diabetes mellitus with diabetic neuropathy, unspecified; I49.5 Sick sinus syndrome; N28.9 Disorder of kidney and ureter, unspecified; Z86.16 Personal history of COVID-19; Z87.09 Personal history of other diseases of the respiratory system; Z95.0 Presence of cardiac pacemaker; Z90.710 Acquired absence of both cervix and uterus; Z80.0 Family history of malignant neoplasm of digestive organs; Z80.9 Family history of malignant neoplasm, unspecified; Z82.49 Family history of ischemic heart disease and other diseases of the circulatory system
CPT/HCPCS: 36415; 80048; 85025; 85610; 85730; 93458; C1760; C1769; C1894; J2250; 99152

== ENCOUNTER 2024-10-06 11:31 | Outpatient (CLI) | payer MEDICARE, OTHER ==
[~2024-10-06 11:31] MED LIST changes: -DOCU-94 PO; -LEVO112T4 PO; -LIS20T GT; -OMEP-448 PO
[2024-10-06 11:50] VITALS: BP 112/54; PULSE 85; RESP 17; O2SAT 93
[2024-10-06 11:53] VITALS: BP 109/54; PULSE 76; RESP 18; O2SAT 93
--- NOTE | 2024-10-06 12:41 | DVH ---
XY CHEST TWO VIEWS ROUTINE CLINICAL HISTORY: PRE OP CARDIAC CLEARANCE COMPARISON: XY CHEST TWO VIEWS ROUTINE on DOS: 08/11/24 TECHNIQUE: Frontal and lateral view of the chest was obtained FINDINGS: Lines and Tubes: Dual lead left-sided pacemaker. Lungs: No focal consolidation. Pleura: No effusion. No pneumothorax. Cardiomediastinal contours: Unremarkable Bones: No acute osseous abnormality. IMPRESSION: No acute cardiopulmonary disease.
[2024-10-06] MEDS ORDERED: VERI2.5T PO (13:12)
[2024-10-06] MEDS ORDERED: CARV6.2517 PO (13:12)
[2024-10-06] MEDS ORDERED: METO-6 PO (13:12)
[2024-10-06] MEDS ORDERED: SERT100T PO (13:12)
[2024-10-06] MEDS ORDERED: MULT-1228 PO (16:25)
[2024-10-06] MEDS ORDERED: FEXO-42 PO (16:25)
== END 2024-10-06 17:00 | disposition home or self-care (01) ==
LOC: Rad HDHVI 11:31
PROVIDERS: ATTEND Internal Medicine Cardiovascular Disease
DX: Z01.818 Encounter for other preprocedural examination (principal); I44.7 Left bundle-branch block, unspecified; I49.5 Sick sinus syndrome; Z95.0 Presence of cardiac pacemaker
CPT/HCPCS: 71046; 93005; G0463

== ENCOUNTER → 2024-10-07 | Day surgery (SDC) | payer MEDICARE, OTHER ==
[2024-10-06 14:44] LABS: Hematocrit 39.6 % (36.0-46.0); Hemoglobin 13.3 g/dL (12.2-16.2); Mean Corpuscular Hemoglobin 31.4 pg (28.0-32.0); Mean Corpuscular Volume 93.6 fL (80.0-100.0); Nucleated Red Blood Cells % 0.0 %
[2024-10-06 15:11] LABS: INR 0.98 (0.9-1.15); Partial Thromboplastin Time 22.8 SEC (24.5-34.5); Prothrombin Time 10.4 sec (9.3-11.8)
[2024-10-06 15:15] LABS: Alanine Aminotransferase 29 U/L (7-40); Albumin 4.3 g/dL (3.2-4.8); Alkaline Phosphatase 92 U/L (46-116); Anion Gap 11 (5-15); BUN/Creatinine Ratio 24.2 (10.0-20.0); Carbon Dioxide 26 mmol/L (20-31); Chloride 106 mmol/L (98-107); Glucose 97 mg/dL (74-106); Potassium 4.1 mmol/L (3.5-5.1); Sodium 143 mmol/L (136-145); Total Protein 6.2 g/dL (5.7-8.2)
[2024-10-06 15:16] LABS: Bilirubin, Total 0.3 mg/dL (0.2-1.0); Blood Urea Nitrogen 43 mg/dL (9-23); Calcium 10.5 mg/dL (8.7-10.4)
[~2024-10-07] VITALS: Ht 154.9 cm; Wt 71.2 kg
[2024-10-07] VITALS (7 sets, daily range): BP systolic 99–142; BP diastolic 60–105; PULSE 65–76; RESP 14–25; O2SAT 93–96
[~2024-10-07] MED LIST changes: +CARV6.2517 PO; +METO-6 PO; +MULT-1228 PO; -TURM500C3 PO; +VERI2.5T PO
[2024-10-07] MEDS: IODIXANOL 320MG/ML 100ML BTL IV ONE ×2 (08:05→08:27)
[2024-10-07] MEDS: LIDOCAINE 2%HCL (LOCAL ANESTH.) INJ 20ML MDV ONE ×2 (08:27→11:07)
[2024-10-07] MEDS: VANCOMYCIN HCL 1000 MG VL ONE (08:27)
[2024-10-07] MEDS: MIDAZOLAM HCL 2MG/2ML 2ml VIAL (1mg/ml) ONE (08:27)
[2024-10-07] MEDS: VANCOMYCIN 1GM/200ML PM 200 ML IV ONE ×2 (08:27→10:49)
[2024-10-07] MEDS: ONDANSETRON HCL 4 MG/2 ML VIAL ONE (10:42)
[2024-10-07] MEDS: FUROSEMIDE 20 MG/2 ML VIAL ONE (11:17)
--- NOTE | 2024-10-07 13:00 | DVH ---
EXAM: XY CHEST XRAY 1 VIEW Indication: s/p Biv AICD Technique: Single frontal view of the chest was obtained Comparison: XY CHEST PORTABLE on DOS: 07/06/24, XY CHEST PORTABLE on DOS: 07/02/24, XY CHEST PORTABLE on DOS: 03/18/23, XY CHEST PORTABLE on DOS: 03/16/23, XY CHEST PORTABLE on DOS: 03/15/23 FINDINGS: Lines and Tubes: Cardiac pacemaker projects over left chest wall. Lungs: Pulmonary edema. Pleura: No effusion. No pneumothorax. Cardiomediastinal contours: Cardiomegaly. Bones: No acute osseous abnormality. IMPRESSION: Mild pulmonary edema. Cardiomegaly.
--- NOTE | 2024-10-12 07:49 | ECG ---
[facility] Test Date: 2024-10-07 Test Time: 12:49:33 Pat Name: DIMITRIOS FISH Department: Room: Gender: F Development Geologist: YVAN : 1940 Requested By: ALEJANDRINA FELIX Order Number: [id number] Reading MD: Maxx Martinez Measurements Intervals [place] Rate: 70 P: -3 MN: 146 QRS: 249 QRSD: 132 T: -32 QT: 464 QTc: 501 Interpretive Statements Electronic ventricular pacemaker Electronically Signed On 10-14-2024 19:11:02 PDT by Maxx Martinez Please click the below link to view image of tracing.
--- NOTE | 2024-10-29 15:06 | DVHOP ---
INDICATIONS: The patient now to undergo BiV AICD implantation. The patient with a history of ischemic cardiomyopathy, dilated component, ejection-fraction less than 25%, now to undergo the above-mentioned procedure. Risks and benefits were explained to the patient. PROCEDURES PERFORMED: * BiV AICD implantation. * Venography. * Conscious sedation. DESCRIPTION OF PROCEDURE: The patient was prepped and draped in a sterile condition. 1% Xylocaine was used to anesthetize the left subclavicular region. Using a Cook needle, the left subclavian vein was engaged with a Seldinger technique, a guidewire then appropriately positioned. Similarly, a second guidewire was then appropriately positioned in the left subclavian vein. Using a 10-blade, a linear incision was made using blunt dissection and electrocautery. Pocket was then dissected out. Then, using a 10.5-[place] sheath, a coronary sinus guide catheter was used, coronary sinus was cannulated and coronary sinus lead then appropriately positioned. Threshold parameters were obtained. The lead was secured to the chest wall using 0 Ethibond. Using another 10.5-[place] sheath, right ventricular active fixation lead, shock lead then appropriately positioned. Threshold parameters were obtained. Lead was secured to the chest wall using 0 Ethibond. Using a 7-[place] peel-away sheath, right atrial active fixation lead then appropriately positioned. Threshold parameters were obtained. Lead was secured to the chest wall using 0 Ethibond. Generator was implanted and the pocket was closed using 3-0 Monoderm subcutaneous sutures followed by 3-0 Monoderm subcuticular sutures. There were no complications. The patient tolerated the procedure well. CONCLUSION: The patient had successful implantation of [employer]otronik MRI-compatible BiV AICD. Threshold parameters: Please see the inserts. Trevor Garcia MD SA/MERCEDES TID: [id number] RECEIPT: [id number]
== END | disposition home or self-care (01) ==
LOC: CATH 07:29
PROVIDERS: ATTEND Internal Medicine Cardiovascular Disease
DX: I42.0 Dilated cardiomyopathy (principal); I25.5 Ischemic cardiomyopathy; I49.5 Sick sinus syndrome; I48.91 Unspecified atrial fibrillation; I50.21 Acute systolic (congestive) heart failure; I51.7 Cardiomegaly; J81.1 Chronic pulmonary edema; Z86.16 Personal history of COVID-19; Z87.09 Personal history of other diseases of the respiratory system; Z90.710 Acquired absence of both cervix and uterus; Z98.890 Other specified postprocedural states; Z88.1 Allergy status to other antibiotic agents; Z88.2 Allergy status to sulfonamides; Z88.5 Allergy status to narcotic agent; Z88.6 Allergy status to analgesic agent; Z88.8 Allergy status to other drugs, medicaments and biological substances; Z91.013 Allergy to seafood; Z82.49 Family history of ischemic heart disease and other diseases of the circulatory system; Z80.0 Family history of malignant neoplasm of digestive organs
CPT/HCPCS: 33225; 33249; 36415; 71045; 80053; 85025; 85610; 85730; 93005; C1769; C1882; J1938; J2250; J3373; J7030; Q9967; 99152; 99153; J2405

== ENCOUNTER 2024-10-11 09:24 | Outpatient (CLI) | payer MEDICARE, OTHER ==
--- NOTE | 2024-10-11 12:32 | DVH ---
XY CHEST TWO VIEWS ROUTINE CLINICAL HISTORY: POST OP SOB COMPARISON: XY CHEST TWO VIEWS ROUTINE on DOS: 10/06/24, XY CHEST TWO VIEWS ROUTINE on DOS: 08/11/24 TECHNIQUE: Frontal and lateral view of the chest was obtained FINDINGS: Lines and Tubes: LEFT-SIDED PACEMAKER/ AICD. Lungs: No focal consolidation. Pleura: No effusion. No pneumothorax. Cardiomediastinal contours: Unremarkable Bones: No acute osseous abnormality. IMPRESSION: No acute cardiopulmonary disease.
== END 2024-10-11 17:00 | disposition home or self-care (01) ==
LOC: Rad HDHVI 09:24
PROVIDERS: ATTEND Internal Medicine Cardiovascular Disease
DX: R06.02 Shortness of breath (principal); Z98.890 Other specified postprocedural states
CPT/HCPCS: 71046

== ENCOUNTER → 2024-11-19 | Outpatient (CLI) | payer MEDICARE, OTHER | END | disposition home or self-care (01) | LOC: Rad HDHVI 09:44 | PROVIDERS: ATTEND Internal Medicine Cardiovascular Disease | DX: I35.1 Nonrheumatic aortic (valve) insufficiency (principal); I11.9 Hypertensive heart disease without heart failure | CPT/HCPCS: 93306 ==